=== PATIENT | female | born 1965 | race Two or more races ===

== ENCOUNTER → 2025-05-12 12:40 | Outpatient (REF) | payer OTHER, SELFPAY ==
[2025-05-12 14:09] LABS: Color, Urine Yellow (Yellow); Glucose, Dipstick Normal (Normal); Ketone-Dipstick Negative (Negative); Leukocyte Esterase-Dipstick Negative /ul (Negative); Mucous, Urine 0 SEEN /hpf (<or=2+); Nitrite-Dipstick Negative (Negative); Occult Blood-Urine Negative /ul (Negative); Protein-Dipstick Negative (Negative); Specific Gravity, Urine 1.010 (1.002-1.030); Urine Bilirubin Dipstick Negative (Negative)
[2025-05-12 14:24] LABS: Hematocrit 41.6 % (37-47); Hemoglobin 13.2 g/dL (12.0-15.0); Immature Granulocytes Count 0.020 X10^3/uL (0.0-0.0); Mean Corp Hgb Conc 31.7 g/dL (32-36); Mean Corpuscular Volume 90.4 fL (81-99); Mean Platelet Vol. 10.7 fl (6.2-12.0); NRBC Flagged by Analyzer 0 % (0-5); Platelet Count 336 K/mm3 (150-450); RBC Distribution Width CV 12.6 % (11.6-14.6); RBC Distribution Width SD 41.2 fl (35.1-43.9); Red Blood Count 4.60 M/mm3 (4.2-5.4); White Blood Count 4.8 K/mm3 (4.4-11.0)
[2025-05-12 14:31] LABS: Red Blood Cells-Urine 0-5 SEEN /hpf (0-5); Squamous Epithelial Cells - UA 0-5 SEEN /hpf (5-10)
[2025-05-12 14:55] LABS: Fibrinogen 372 mg/dl (203-444)
[2025-05-12 15:10] LABS: AST(SGOT) 19 U/L (<=31); Alanine Aminotransfer ALT/SGPT 14 U/L (<=34); Albumin, Serum 4.4 g/dL (3.4-4.8); Alkaline Phosphatase 72 U/L (35-104); Anion Gap 11 (5-15); BUN 12 mg/dL (4-19); BUN/Creat Ratio 19.8 RATIO (10-20); Calcium,Total 9.6 mg/dL (7.6-11.0); Carbon Dioxide 26.9 mmol/L (21.0-32.0); Chloride 103 mmol/L (98-108); Globulin 2.8 g/dL (2.2-4.2); Glucose 87 mg/dL (70-99); Potassium 4.0 mmol/L (3.3-5.1)
[2025-05-12 15:33] LABS: CRP 4.54 mg/L (0.0-3.0); Iron 110 ug/dL (50-170)
[2025-05-12 15:39] LABS: Ferritin 144 ng/mL (22-378); Free T3 3.2 pg/mL (2.18-3.98)
[2025-05-20 06:08] LABS: Arsenic 7245 1 ug/L (0-9); CRP, High Sensitivity 3.95 mg/L (0.00-3.00); HOMOCYSTEINE 9.8 umol/L (0.0-14.5); Lead, Blood < 1.0 ug/dL (0.0-3.4); Mercury, Blood 85324 < 1.0 ug/L (0.0-14.9); PROGESTERONE <0.1 ng/mL (.)
== END ==
LOC: LABSPEC 12:40
PROVIDERS: PCP Nurse Practitioner Family; Referring Provider Nurse Practitioner Family; Visit Provider Nurse Practitioner Family
DX: R63.4 Abnormal weight loss (principal); R53.82 Chronic fatigue, unspecified; G47.00 Insomnia, unspecified; R53.1 Weakness; R63.8 Other symptoms and signs concerning food and fluid intake; R50.9 Fever, unspecified; R43.9 Unspecified disturbances of smell and taste; R06.02 Shortness of breath; R07.9 Chest pain, unspecified; R07.89 Other chest pain; R10.84 Generalized abdominal pain; R11.0 Nausea; M62.838 Other muscle spasm; G25.0 Essential tremor; G31.84 Mild cognitive impairment of uncertain or unknown etiology; F32.A Depression, unspecified; F41.9 Anxiety disorder, unspecified; N95.8 Other specified menopausal and perimenopausal disorders
CPT/HCPCS: 80053; 81001; 82627; 82670; 82728; 83036; 83090; 83525; 83540; 83695; 84144; 84403; 84439; 84443; 84481; 85025; 85384; 85652; 86140; 86141; 87086; 87088; 82626

== ENCOUNTER → 2025-08-24 | Outpatient (CLI) | payer OTHER, SELFPAY ==
--- OUTSIDE RECORDS SUMMARY | 2025-08-24 18:04 | XMS RPT_ITS | CCD ---
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 L400.0001, L101.9900, L100.0100, L300.4700, L501.9985, L500.4050, L501.6710 #### [facility] [address] [place], [place], [id number] CRP, High Sensitivity 728325 on 05-20-2025 CRP, HIGH SENS 3.95 mg/L High 0.00-3.00 [facility] Comment on above: Order Comment: Test( s) 568423-Gvwu, Blood; 045206-Uvojlbw, Blood; 370720-Tcmnvdw, Blood; 964475-Rqvogth, Bloodwas developed and its performance characteristicsdetermined by [facility]. It has not been cleared or approvedby the Food and Drug Administration. Result Comment: Rela tive Risk for Future Cardiovascular Event Low <1.00 Average 1.00 - 3.00 High >3.00 Performed By: #### L 503.6150, L501.92866, L501.9520, L503.6550, L506.0400, L509.3001, L3300.1750, M100.2200, L3300.1500, L3300.3500, L3400.4600, L3410.9998, L801.2600, L803.0600, L3100.6427, L3100.7870, L3410.9992, L3410.9996, L400.0001, L101.9900, L100.0100, L300.4700, L501.9985, L500.4050, L501.6710 #### [facility] [address] [place], [place], [id number] L803.0600on 05-20-2025 HOMOCYSTEINE 9.8 umol/L Normal 0.0-14.5 [facility] Comment on above: Order Comment: Test( s) 033142-Bcdj, Blood; 976884-Jvsdibu, Blood; 994383-Bkgxzwz, Blood; 543381-Bkgivhe, Bloodwas developed and its performance characteristicsdetermined by [employer]. It has not been cleared or approvedby the Food and Drug Administration. Performed By: #### L 503.6150, L501.99529, L501.9520, L503.6550, L506.0400, L509.3001, L3300.1750, M100.2200, L3300.1500, L3300.3500, L3400.4600, L3410.9998, L801.2600, L803.0600, L3100.6427, L3100.7870, L3410.9992, L3410.9996, L400.0001, L101.9900, L100.0100, L300.4700, L501.9985, L500.4050, L501.6710 #### [facility] [address] [place], [address] PROGESTERONE 4317on 05-20-20 PROGESTERONE <0.1 Normal . [facility] Comment on above: Order Comment: Test( s) 864437-Pcta, Blood; 046317-Keloswt, Blood; 582890-Uxyrkku, Blood; 450898-Atbjhan, Bloodwas developed and its performance characteristicsdetermined by [employer]. It has not been cleared or approvedby the Food and Drug Administration.N Result Comment: Foll icular phase 0.1 - 0.9 Luteal phase 1.8 - 23.9 Ovulation phase 0.1 - 12.0 First trimester 11.0 - 44.3 Second trimester 25.4 - 83.3 Third trimester 58.7 - 214.0 Postmenopausal 0.0 - 0.1 Performed at: [address] [id number] [employer] Telephone Clerk: Tamara Barrios MD, Phone: [phone] Performed at: [address] [id number] [employer] Telephone Clerk: Joe Aguilar PhD, Phone: [phone] Performed By: #### L 503.6150, L501.17615, L501.9520, L503.6550, L506.0400, L509.3001, L3300.1750, M100.2200, L3300.1500, L3300.3500, L3400.4600, L3410.9998, L801.2600, L803.0600, L3100.6427, L3100.7870, L3410.9992, L3410.9996, L400.0001, L101.9900, L100.0100, L300.4700, L501.9985, L500.4050, L501.6710 #### [facility] [address] [facility] [place], [address] Heavy Metals Bld Profileo n 05-20-2025 ARSENIC,BLOOD 1 ug/L Normal 0-9 [facility] Comment on above: Order Comment: Test( s) 991777-Eatb, Blood; 015804-Yqwcbip, Blood; 767325-Yktlude, Blood; 188554-Nbccdba, Bloodwas developed and its performance characteristicsdetermined by [facility]. It has not been cleared or approvedby the Food and Drug Administration. Result Comment: Dete ction Limit = 1 Performed By: #### L 503.6150, L501.30452, L501.9520, L503.6550, L506.0400, L509.3001, L3300.1750, M100.2200, L3300.1500, L3300.3500, L3400.4600, L3410.9998, L801.2600, L803.0600, L3100.6427, L3100.7870, L3410.9992, L3410.9996, L400.0001, L101.9900, L100.0100, L300.4700, L501.9985, L500.4050, L501.6710 #### [facility] [address] [place], [address] CADMIUM BLOOD < 0.5 Normal 0.0-1.2 [facility] Comment on above: Order Comment: Test( s) 596090-Mwto, Blood; 210930-Vwuinod, Blood; 897089-Itchtrs, Blood; 851771-Dnksaes, Bloodwas developed and its performance characteristicsdetermined by [facility]. It has not been cleared or approvedby the Food and Drug Administration. Result Comment: Envi ronmental Exposure: Nonsmokers 0.3 - 1.2 Smokers 0.6 - 3.9 Occupational Exposure: OSHA Cadmium Std 5.0 GOVIND 5.0 Detection Limit = 0.5 Performed By: #### L 503.6150, L501.63427, L501.9520, L503.6550, L506.0400, L509.3001, L3300.1750, M100.2200, L3300.1500, L3300.3500, L3400.4600, L3410.9998, L801.2600, L803.0600, L3100.6427, L3100.7870, L3410.9992, L3410.9996, L400.0001, L101.9900, L100.0100, L300.4700, L501.9985, L500.4050, L501.6710 #### [facility] [address] [place], [address] LEAD, BLOOD < 1.0 Normal 0.0-3.4 [facility] Comment on above: Order Comment: Test( s) 294001-Nkjw, Blood; 886724-Ojfgsqi, Blood; 827444-Modxuyl, Blood; 740659-Jyyxale, Bloodwas developed and its performance characteristicsdetermined by [facility]. It has not been cleared or approvedby the Food and Drug Administration. Result Comment: Test ing performed by Inductively coupled plasma/Mass Spectrometry. Environmental Exposure: WHO Recommendation <5.0 Occupational Exposure: OSHA Lead Std 40.0 GOVIND 30.0 Detection Limit = 1.0 Performed By: #### L 503.6150, L501.46035, L501.9520, L503.6550, L506.0400, L509.3001, L3300.1750, M100.2200, L3300.1500, L3300.3500, L3400.4600, L3410.9998, L801.2600, L803.0600, L3100.6427, L3100.7870, L3410.9992, L3410.9996, L400.0001, L101.9900, L100.0100, L300.4700, L501.9985, L500.4050, L501.6710 #### [facility] [address] [facility]. [place], [place], [id number] MERCURY,BLOOD < 1.0 Normal 0.0-14.9 [facility] Comment on above: Order Comment: Test( s) 391943-Salh, Blood; 813611-Lesvips, Blood; 581531-Khrguzb, Blood; 185810-Tnysfyj, Bloodwas developed and its performance characteristicsdetermined by [facility]. It has not been cleared or approvedby the Food and Drug Administration. Result Comment: Dete ction Limit = 1.0 Performed By: #### L 503.6150, L501.24884, L501.9520, L503.6550, L506.0400, L509.3001, L3300.1750, M100.2200, L3300.1500, L3300.3500, L3400.4600, L3410.9998, L801.2600, L803.0600, L3100.6427, L3100.7870, L3410.9992, L3410.9996, L400.0001, L101.9900, L100.0100, L300.4700, L501.9985, L500.4050, L501.6710 #### [facility] [address] [facility] [place], [address] DHEA Sulfateon 05-14-2025 DHEA SULFATE 89.5 ug/dL Normal 29.4-220.5 [facility] Comment on above: Order Comment: Test( s) 937452-Rvhjqkbvrge (a)was developed and its performance characteristicsdetermined by [facility]. It has not been cleared or approvedby the Food and Drug Administration.N Performed By: #### L 503.6150, L501.39709, L501.9520, L503.6550, L506.0400, L509.3001, L3300.1750, M100.2200, L3300.1500, L3300.3500, L3400.4600, L3410.9998, L801.2600, L803.0600, L3100.6427, L3100.7870, L3410.9992, L3410.9996, L400.0001, L101.9900, L100.0100, L300.4700, L501.9985, L500.4050, L501.6710 #### [facility] [address] [place] [address]. [place], [address] Insulin Levelon 05-14-2025 INSULIN,FASTING 13.7 uIU/mL Normal 2.6-24.9 [facility] Comment on above: Order Comment: Test( s) 514953-Vgpwdrzvwed (a)was developed and its performance characteristicsdetermined by [facility]. It has not been cleared or approvedby the Food and Drug Administration. Result Comment: Perf ormed at: [facility] [address] [id number] Telegraph [employer] Telephone Clerk: Joe Aguilar PhD, Phone: [phone] Performed By: #### L 503.6150, L501.83706, L501.9520, L503.6550, L506.0400, L509.3001, L3300.1750, M100.2200, L3300.1500, L3300.3500, L3400.4600, L3410.9998, L801.2600, L803.0600, L3100.6427, L3100.7870, L3410.9992, L3410.9996, L400.0001, L101.9900, L100.0100, L300.4700, L501.9985, L500.4050, L501.6710 #### [facility] [address] [facility] [place], [address] [facility] Misc.on 05-14-2025 [facility] Misc. 4 COMMENT Normal . [facility] Comment on above: Order Comment: 22904 6HNK1 ACD RMT WB Result Comment: Test Ordered: [id number] HNK1 (CD57) Panel Test(s) 579982-% CD8-/CD57+ Lymphs was developed and its performance characteristics determined by [facility]. It has not been cleared or approved by the Food and Drug Administration. % CD8-/CD57+ Lymphs 6.1 % BN Reference Range: 2.0-17.0 Abs.CD8-CD57+ Lymphs 55 [L ] /uL CB Reference Range: 60-360 WBC 4.6 x10E3/uL CB Reference Range: 3.4-10.8 RBC 4.78 x10E6/uL CB Reference Range: 3.77-5.28 Hemoglobin 13.7 g/dL CB Reference Range: 11.1-15.9 Hematocrit 45.1 % CB Reference Range: 34.0-46.6 MCV 94 fL CB Reference Range: 79-97 MCH 28.7 pg CB Reference Range: 26.6-33.0 MCHC 30.4 [L ] g/dL CB Reference Range: 31.5-35.7 RDW 12.1 % CB Reference Range: 11.7-15.4 Platelets 350 x10E3/uL CB Reference Range: 150-450 Neutrophils 71 % CB Reference Range: Not Estab. Lymphs 20 % CB Reference Range: Not Estab. Monocytes 6 % CB Reference Range: Not Estab. Eos 2 % CB Reference Range: Not Estab. Basos 1 % CB Reference Range: Not Estab. Immature Cells [employer]OR [employer]PERATOR [employer] Reference Range: . Neutrophils (Absolute) 3.2 x10E3/uL CB Reference Range: 1.4-7.0 Lymphs (Absolute) 0.9 x10E3/uL CB Reference Range: 0.7-3.1 Monocytes(Absolute) 0.3 x10E3/uL CB Reference Range: 0.1-0.9 Eos (Absolute) 0.1 x10E3/uL CB Reference Range: 0.0-0.4 Baso (Absolute) 0.1 x10E3/uL CB Reference Range: 0.0-0.2 Immature Granulocytes 0 % CB Reference Range: Not Estab. Immature Grans (Abs) 0.0 x10E3/uL CB Reference Range: 0.0-0.1 NRBC [employer]ANCE [employer]OR [employer]PER[employer] Reference Range: . 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 Performed at: - [address] [id number] [employer] Telephone Clerk: Tamara Barrios MD, Phone: [phone] Performed at: - [address] [id number] [employer] Telephone Clerk: Joe Aguilar PhD, Phone: [phone] Performed By: #### L 503.6150, L501.90359, L501.9520, L503.6550, L506.0400, L509.3001, L3300.1750, M100.2200, L3300.1500, L3300.3500, L3400.4600, L3410.9998, L801.2600, L803.0600, L3100.6427, L3100.7870, L3410.9992, L3410.9996, L400.0001, L101.9900, L100.0100, L300.4700, L501.9985, L500.4050, L501.6710 #### [facility] [address] [place], [address] Lipoprotein Aon 05-14-2025 Lipoprotein a [Moles/Vol] 247.5 nmol/L Abnormal <75.0 [facility] Comment on above: Order Comment: Test( s) 969405-Ltlygyxenqy (a)was developed and its performance characteristicsdetermined by [facility]. It has not been cleared or approvedby the Food and Drug Administration. Result Comment: Resu lts confirmed on dilution. Note: Values greater than or equal to 75.0 nmol/L may indicate an independent risk factor for CHD, but must be evaluated with caution when applied to non- populations due to the influence of genetic factors on Lp(a) across ethnicities. Performed By: #### L 503.6150, L501.99395, L501.9520, L503.6550, L506.0400, L509.3001, L3300.1750, M100.2200, L3300.1500, L3300.3500, L3400.4600, L3410.9998, L801.2600, L803.0600, L3100.6427, L3100.7870, L3410.9992, L3410.9996, L400.0001, L101.9900, L100.0100, L300.4700, L501.9985, L500.4050, L501.6710 #### [facility] [address] [place], [place], [id number] Urine Cultureon 05-14-2025 [facility] Mixed Gram Positive Organisms Wirt Count 80,000-100,000 MIXC Mixed contaminants. Submit a new specimen if indicated. Normal [facility] Comment on above: Performed By: #### L 503.6150, L501.95292, L501.9520, L503.6550, L506.0400, L509.3001, L3300.1750, M100.2200, L3300.1500, L3300.3500, L3400.4600, L3410.9998, L801.2600, L803.0600, L3100.6427, L3100.7870, L3410.9992, L3410.9996, L400.0001, L101.9900, L100.0100, L300.4700, L501.9985, L500.4050, L501.6710 #### [facility] [address] [place], [place], [id number] CBC W/Diff, Automatedon 04-24 Absolute Lymph 0.96 X10 3/uL Normal 0.83-4.51 [facility] Comment on above: Performed By: #### L 503.6150, L501.15486, L501.9520, L503.6550, L506.0400, L509.3001, L3300.1750, M100.2200, L3300.1500, L3300.3500, L3400.4600, L3410.9998, L801.2600, L803.0600, L3100.6427, L3100.7870, L3410.9992, L3410.9996, L400.0001, L101.9900, L100.0100, L300.4700, L501.9985, L500.4050, L501.6710 #### [facility] [address] [facility]. [place], [place], [phone] (795) Absolute Neut 3.4 X10 3/uL Normal 2.0-7.7 [facility] Comment on above: Performed By: #### L 503.6150, L501.08164, L501.9520, L503.6550, L506.0400, L509.3001, L3300.1750, M100.2200, L3300.1500, L3300.3500, L3400.4600, L3410.9998, L801.2600, L803.0600, L3100.6427, L3100.7870, L3410.9992, L3410.9996, L400.0001, L101.9900, L100.0100, L300.4700, L501.9985, L500.4050, L501.6710 #### [facility] [address] [facility] [place], [place], [id number] Basophils/100 WBC (Bld) 1.5 % High 0-1 [facility] Comment on above: Performed By: #### L 503.6150, L501.56495, L501.9520, L503.6550, L506.0400, L509.3001, L3300.1750, M100.2200, L3300.1500, L3300.3500, L3400.4600, L3410.9998, L801.2600, L803.0600, L3100.6427, L3100.7870, L3410.9992, L3410.9996, L400.0001, L101.9900, L100.0100, L300.4700, L501.9985, L500.4050, L501.6710 #### [facility] [address] [facility] [place], [place], [phone] (175) Eosinophils/100 WBC (Bld) 1.9 % Normal 0-5 [facility] Comment on above: Performed By: #### L 503.6150, L501.80651, L501.9520, L503.6550, L506.0400, L509.3001, L3300.1750, M100.2200, L3300.1500, L3300.3500, L3400.4600, L3410.9998, L801.2600, L803.0600, L3100.6427, L3100.7870, L3410.9992, L3410.9996, L400.0001, L101.9900, L100.0100, L300.4700, L501.9985, L500.4050, L501.6710 #### [facility] [address] [facility] [place], [address] (002) Erythrocyte distribution width (RBC) [Ratio] 12.6 % Normal 11.6-14.6 [facility] Comment on above: Performed By: #### L 503.6150, L501.69974, L501.9520, L503.6550, L506.0400, L509.3001, L3300.1750, M100.2200, L3300.1500, L3300.3500, L3400.4600, L3410.9998, L801.2600, L803.0600, L3100.6427, L3100.7870, L3410.9992, L3410.9996, L400.0001, L101.9900, L100.0100, L300.4700, L501.9985, L500.4050, L501.6710 #### [facility] [address] [facility] [place], [address] (969) Hematocrit (Bld) [Volume fraction] 41.6 % Normal 37-47 [facility] Comment on above: Performed By: #### L 503.6150, L501.17511, L501.9520, L503.6550, L506.0400, L509.3001, L3300.1750, M100.2200, L3300.1500, L3300.3500, L3400.4600, L3410.9998, L801.2600, L803.0600, L3100.6427, L3100.7870, L3410.9992, L3410.9996, L400.0001, L101.9900, L100.0100, L300.4700, L501.9985, L500.4050, L501.6710 #### [facility] [address] [facility] [place], [address] Hemoglobin (Bld) [Mass/Vol] 13.2 g/dL Normal 12.0-15.0 [facility] Comment on above: Performed By: #### L 503.6150, L501.92897, L501.9520, L503.6550, L506.0400, L509.3001, L3300.1750, M100.2200, L3300.1500, L3300.3500, L3400.4600, L3410.9998, L801.2600, L803.0600, L3100.6427, L3100.7870, L3410.9992, L3410.9996, L400.0001, L101.9900, L100.0100, L300.4700, L501.9985, L500.4050, L501.6710 #### [facility] [address] [facility] [place], [address] IG% 0.400 Normal 0.0-0.9 [facility] Comment on above: Result Comment: IG% - Immature Granulocytes (promyelocytes, myelocytes and metamyelocytes) > 1% indicates that a LEFT SHIFT is Present. Performed By: #### L 503.6150, L501.70003, L501.9520, L503.6550, L506.0400, L509.3001, L3300.1750, M100.2200, L3300.1500, L3300.3500, L3400.4600, L3410.9998, L801.2600, L803.0600, L3100.6427, L3100.7870, L3410.9992, L3410.9996, L400.0001, L101.9900, L100.0100, L300.4700, L501.9985, L500.4050, L501.6710 #### [facility] [address] [facility] [place], [place], [phone] (599) Lymphocytes/100 WBC (Bld) 20.1 % Normal 19-41 [facility] Comment on above: Performed By: #### L 503.6150, L501.81357, L501.9520, L503.6550, L506.0400, L509.3001, L3300.1750, M100.2200, L3300.1500, L3300.3500, L3400.4600, L3410.9998, L801.2600, L803.0600, L3100.6427, L3100.7870, L3410.9992, L3410.9996, L400.0001, L101.9900, L100.0100, L300.4700, L501.9985, L500.4050, L501.6710 #### [facility] [address] [facility] [place], [place], [phone] MCH (RBC) [Entitic mass] 28.7 pg Normal 27.0-32.0 [facility] Comment on above: Performed By: #### L 503.6150, L501.97514, L501.9520, L503.6550, L506.0400, L509.3001, L3300.1750, M100.2200, L3300.1500, L3300.3500, L3400.4600, L3410.9998, L801.2600, L803.0600, L3100.6427, L3100.7870, L3410.9992, L3410.9996, L400.0001, L101.9900, L100.0100, L300.4700, L501.9985, L500.4050, L501.6710 #### [facility] [address] [place], [place], [phone] MCHC (RBC) [Mass/Vol] 31.7 g/dL Low 32-36 [facility] Comment on above: Performed By: #### L 503.6150, L501.65275, L501.9520, L503.6550, L506.0400, L509.3001, L3300.1750, M100.2200, L3300.1500, L3300.3500, L3400.4600, L3410.9998, L801.2600, L803.0600, L3100.6427, L3100.7870, L3410.9992, L3410.9996, L400.0001, L101.9900, L100.0100, L300.4700, L501.9985, L500.4050, L501.6710 #### [facility] [address] [facility] [place], [place], [id number] MCV (RBC) [Entitic vol] 90.4 fL Normal 81-99 [facility] Comment on above: Performed By: #### L 503.6150, L501.84674, L501.9520, L503.6550, L506.0400, L509.3001, L3300.1750, M100.2200, L3300.1500, L3300.3500, L3400.4600, L3410.9998, L801.2600, L803.0600, L3100.6427, L3100.7870, L3410.9992, L3410.9996, L400.0001, L101.9900, L100.0100, L300.4700, L501.9985, L500.4050, L501.6710 #### [facility] [address] [facility] [place], [address] Monocytes/100 WBC (Bld) 5.9 % Normal 0-10 [facility] Comment on above: Performed By: #### L 503.6150, L501.63036, L501.9520, L503.6550, L506.0400, L509.3001, L3300.1750, M100.2200, L3300.1500, L3300.3500, L3400.4600, L3410.9998, L801.2600, L803.0600, L3100.6427, L3100.7870, L3410.9992, L3410.9996, L400.0001, L101.9900, L100.0100, L300.4700, L501.9985, L500.4050, L501.6710 #### [facility] [address] [place], [address] Neutrophils/100 WBC (Bld) 70.2 % High 47-70 [facility] Comment on above: Performed By: #### L 503.6150, L501.46541, L501.9520, L503.6550, L506.0400, L509.3001, L3300.1750, M100.2200, L3300.1500, L3300.3500, L3400.4600, L3410.9998, L801.2600, L803.0600, L3100.6427, L3100.7870, L3410.9992, L3410.9996, L400.0001, L101.9900, L100.0100, L300.4700, L501.9985, L500.4050, L501.6710 #### [facility] [address] [facility] [place], [address] Nucleated RBC (Bld) [#/Vol] 0 10*3/uL Normal 0-5 [facility] Comment on above: Performed By: #### L 503.6150, L501.80778, L501.9520, L503.6550, L506.0400, L509.3001, L3300.1750, M100.2200, L3300.1500, L3300.3500, L3400.4600, L3410.9998, L801.2600, L803.0600, L3100.6427, L3100.7870, L3410.9992, L3410.9996, L400.0001, L101.9900, L100.0100, L300.4700, L501.9985, L500.4050, L501.6710 #### [facility] [address] [facility] [place], [place], [phone] (226) Platelet mean volume (Bld) [Entitic vol] 10.7 fL Normal 6.2-12.0 [facility] Comment on above: Performed By: #### L 503.6150, L501.56938, L501.9520, L503.6550, L506.0400, L509.3001, L3300.1750, M100.2200, L3300.1500, L3300.3500, L3400.4600, L3410.9998, L801.2600, L803.0600, L3100.6427, L3100.7870, L3410.9992, L3410.9996, L400.0001, L101.9900, L100.0100, L300.4700, L501.9985, L500.4050, L501.6710 #### [facility] [address] [place], [id number] Platelets (Bld) [#/Vol] 336 10*3/uL Normal 150-450 [facility] Comment on above: Performed By: #### L 503.6150, L501.11493, L501.9520, L503.6550, L506.0400, L509.3001, L3300.1750, M100.2200, L3300.1500, L3300.3500, L3400.4600, L3410.9998, L801.2600, L803.0600, L3100.6427, L3100.7870, L3410.9992, L3410.9996, L400.0001, L101.9900, L100.0100, L300.4700, L501.9985, L500.4050, L501.6710 #### [facility] [address]. [place], [place], [id number] [phone] RBC (Bld) [#/Vol] 4.60 10*6/uL Normal 4.2-5.4 [facility] Comment on above: Performed By: #### L 503.6150, L501.22886, L501.9520, L503.6550, L506.0400, L509.3001, L3300.1750, M100.2200, L3300.1500, L3300.3500, L3400.4600, L3410.9998, L801.2600, L803.0600, L3100.6427, L3100.7870, L3410.9992, L3410.9996, L400.0001, L101.9900, L100.0100, L300.4700, L501.9985, L500.4050, L501.6710 #### [facility] [address]. [place], [place], [id number] (451) RDW SD 41.2 fl Normal 35.1-43.9 [facility] Comment on above: Performed By: #### L 503.6150, L501.52855, L501.9520, L503.6550, L506.0400, L509.3001, L3300.1750, M100.2200, L3300.1500, L3300.3500, L3400.4600, L3410.9998, L801.2600, L803.0600, L3100.6427, L3100.7870, L3410.9992, L3410.9996, L400.0001, L101.9900, L100.0100, L300.4700, L501.9985, L500.4050, L501.6710 #### [facility] [address] [place], [place], [id number] WBC (Bld) [#/Vol] 4.8 10*3/uL Normal 4.4-11.0 [facility] Comment on above: Performed By: #### L 503.6150, L501.74795, L501.9520, L503.6550, L506.0400, L509.3001, L3300.1750, M100.2200, L3300.1500, L3300.3500, L3400.4600, L3410.9998, L801.2600, L803.0600, L3100.6427, L3100.7870, L3410.9992, L3410.9996, L400.0001, L101.9900, L100.0100, L300.4700, L501.9985, L500.4050, L501.6710 #### [facility] [address]. [place], [place], [id number] CRPon 05-12-2025 C-REACTIVE PROT 4.54 mg/L High 0.0-3.0 [facility] Comment on above: Performed By: #### L 503.6150, L501.89122, L501.9520, L503.6550, L506.0400, L509.3001, L3300.1750, M100.2200, L3300.1500, L3300.3500, L3400.4600, L3410.9998, L801.2600, L803.0600, L3100.6427, L3100.7870, L3410.9992, L3410.9996, L400.0001, L101.9900, L100.0100, L300.4700, L501.9985, L500.4050, L501.6710 #### [facility] [address] [place], [place], [id number] Comprehensive Metabolic Prof wion 05-12-2025 Albumin [Mass/Vol] 4.4 g/dL Normal 3.4-4.8 [facility] Comment on above: Performed By: #### L 503.6150, L501.26750, L501.9520, L503.6550, L506.0400, L509.3001, L3300.1750, M100.2200, L3300.1500, L3300.3500, L3400.4600, L3410.9998, L801.2600, L803.0600, L3100.6427, L3100.7870, L3410.9992, L3410.9996, L400.0001, L101.9900, L100.0100, L300.4700, L501.9985, L500.4050, L501.6710 #### [facility] [address] [facility] [place], [place], [id number] Albumin/Globulin [Mass ratio] 1.6 {ratio} Normal 0.9-2.4 [facility] Comment on above: Performed By: #### L 503.6150, L501.74646, L501.9520, L503.6550, L506.0400, L509.3001, L3300.1750, M100.2200, L3300.1500, L3300.3500, L3400.4600, L3410.9998, L801.2600, L803.0600, L3100.6427, L3100.7870, L3410.9992, L3410.9996, L400.0001, L101.9900, L100.0100, L300.4700, L501.9985, L500.4050, L501.6710 #### [facility] [address] [place], [place], [id number] ALK PHOS 72 U/L Normal 35-104 [facility] Comment on above: Performed By: #### L 503.6150, L501.40516, L501.9520, L503.6550, L506.0400, L509.3001, L3300.1750, M100.2200, L3300.1500, L3300.3500, L3400.4600, L3410.9998, L801.2600, L803.0600, L3100.6427, L3100.7870, L3410.9992, L3410.9996, L400.0001, L101.9900, L100.0100, L300.4700, L501.9985, L500.4050, L501.6710 #### [facility] [address] [facility] [place], [address] ALT [Catalytic activity/Vol] 14 U/L Normal <=34 [facility] Comment on above: Performed By: #### L 503.6150, L501.04593, L501.9520, L503.6550, L506.0400, L509.3001, L3300.1750, M100.2200, L3300.1500, L3300.3500, L3400.4600, L3410.9998, L801.2600, L803.0600, L3100.6427, L3100.7870, L3410.9992, L3410.9996, L400.0001, L101.9900, L100.0100, L300.4700, L501.9985, L500.4050, L501.6710 #### [facility] [address] [facility] [place], [address] AST [Catalytic activity/Vol] 19 U/L Normal <=31 [facility] Comment on above: Performed By: #### L 503.6150, L501.10592, L501.9520, L503.6550, L506.0400, L509.3001, L3300.1750, M100.2200, L3300.1500, L3300.3500, L3400.4600, L3410.9998, L801.2600, L803.0600, L3100.6427, L3100.7870, L3410.9992, L3410.9996, L400.0001, L101.9900, L100.0100, L300.4700, L501.9985, L500.4050, L501.6710 #### [facility] [address] [facility] [place], [place], [phone] (716) Bilirubin [Mass/Vol] 0.74 mg/dL Normal 0.00-1.30 [facility] Comment on above: Performed By: #### L 503.6150, L501.03238, L501.9520, L503.6550, L506.0400, L509.3001, L3300.1750, M100.2200, L3300.1500, L3300.3500, L3400.4600, L3410.9998, L801.2600, L803.0600, L3100.6427, L3100.7870, L3410.9992, L3410.9996, L400.0001, L101.9900, L100.0100, L300.4700, L501.9985, L500.4050, L501.6710 #### [facility] [address] [place], [place], [id number] BUN/CRE 19.8 RATIO Normal 10-20 [facility] Comment on above: Performed By: #### L 503.6150, L501.53323, L501.9520, L503.6550, L506.0400, L509.3001, L3300.1750, M100.2200, L3300.1500, L3300.3500, L3400.4600, L3410.9998, L801.2600, L803.0600, L3100.6427, L3100.7870, L3410.9992, L3410.9996, L400.0001, L101.9900, L100.0100, L300.4700, L501.9985, L500.4050, L501.6710 #### [facility] [address] [place], [place], [phone] (151) Calcium [Mass/Vol] 9.6 mg/dL Normal 7.6-11.0 [facility] Comment on above: Performed By: #### L 503.6150, L501.69203, L501.9520, L503.6550, L506.0400, L509.3001, L3300.1750, M100.2200, L3300.1500, L3300.3500, L3400.4600, L3410.9998, L801.2600, L803.0600, L3100.6427, L3100.7870, L3410.9992, L3410.9996, L400.0001, L101.9900, L100.0100, L300.4700, L501.9985, L500.4050, L501.6710 #### [facility] [address] [place], [place], [phone] (960) Chloride [Moles/Vol] 103 mmol/L Normal 98-108 [facility] Comment on above: Performed By: #### L 503.6150, L501.28311, L501.9520, L503.6550, L506.0400, L509.3001, L3300.1750, M100.2200, L3300.1500, L3300.3500, L3400.4600, L3410.9998, L801.2600, L803.0600, L3100.6427, L3100.7870, L3410.9992, L3410.9996, L400.0001, L101.9900, L100.0100, L300.4700, L501.9985, L500.4050, L501.6710 #### [facility] [address] [place], [place], [phone] (157) CO2 [Moles/Vol] 26.9 mmol/L Normal 21.0-32.0 [facility] Comment on above: Performed By: #### L 503.6150, L501.67926, L501.9520, L503.6550, L506.0400, L509.3001, L3300.1750, M100.2200, L3300.1500, L3300.3500, L3400.4600, L3410.9998, L801.2600, L803.0600, L3100.6427, L3100.7870, L3410.9992, L3410.9996, L400.0001, L101.9900, L100.0100, L300.4700, L501.9985, L500.4050, L501.6710 #### [facility] [address] [facility] [place], [address] Creatinine [Mass/Vol] 0.60 mg/dL Low 0.70-1.20 [facility] Comment on above: Performed By: #### L 503.6150, L501.42327, L501.9520, L503.6550, L506.0400, L509.3001, L3300.1750, M100.2200, L3300.1500, L3300.3500, L3400.4600, L3410.9998, L801.2600, L803.0600, L3100.6427, L3100.7870, L3410.9992, L3410.9996, L400.0001, L101.9900, L100.0100, L300.4700, L501.9985, L500.4050, L501.6710 #### [facility] [address] [facility] [place], [address] GAP 11 Normal 5-15 [facility] Comment on above: Performed By: #### L 503.6150, L501.84744, L501.9520, L503.6550, L506.0400, L509.3001, L3300.1750, M100.2200, L3300.1500, L3300.3500, L3400.4600, L3410.9998, L801.2600, L803.0600, L3100.6427, L3100.7870, L3410.9992, L3410.9996, L400.0001, L101.9900, L100.0100, L300.4700, L501.9985, L500.4050, L501.6710 #### [facility] [address] [facility] [place], [place], [id number] GFR/1.73 sq M.predicted among non-blacks MDRD (S/P/Bld) [Vol rate/Area] 103 mL/min/{1.73_m2} Normal >60 [facility] Comment on above: Result Comment: mL/m in/1.73m2 CKD-EPI Creatinine Equation (2020) Performed By: #### L 503.6150, L501.99954, L501.9520, L503.6550, L506.0400, L509.3001, L3300.1750, M100.2200, L3300.1500, L3300.3500, L3400.4600, L3410.9998, L801.2600, L803.0600, L3100.6427, L3100.7870, L3410.9992, L3410.9996, L400.0001, L101.9900, L100.0100, L300.4700, L501.9985, L500.4050, L501.6710 #### [facility] [address] [facility] [place], [address] Globulin (S) [Mass/Vol] 2.8 g/dL Normal 2.2-4.2 [facility] Comment on above: Performed By: #### L 503.6150, L501.16175, L501.9520, L503.6550, L506.0400, L509.3001, L3300.1750, M100.2200, L3300.1500, L3300.3500, L3400.4600, L3410.9998, L801.2600, L803.0600, L3100.6427, L3100.7870, L3410.9992, L3410.9996, L400.0001, L101.9900, L100.0100, L300.4700, L501.9985, L500.4050, L501.6710 #### [facility] [address] [facility] [place], [place], [phone] (911) Glucose [Mass/Vol] 87 mg/dL Normal 70-99 [facility] Comment on above: Performed By: #### L 503.6150, L501.24069, L501.9520, L503.6550, L506.0400, L509.3001, L3300.1750, M100.2200, L3300.1500, L3300.3500, L3400.4600, L3410.9998, L801.2600, L803.0600, L3100.6427, L3100.7870, L3410.9992, L3410.9996, L400.0001, L101.9900, L100.0100, L300.4700, L501.9985, L500.4050, L501.6710 #### [facility] [address] [facility] [place], [place], [phone] Potassium [Moles/Vol] 4.0 mmol/L Normal 3.3-5.1 [facility] Comment on above: Performed By: #### L 503.6150, L501.36709, L501.9520, L503.6550, L506.0400, L509.3001, L3300.1750, M100.2200, L3300.1500, L3300.3500, L3400.4600, L3410.9998, L801.2600, L803.0600, L3100.6427, L3100.7870, L3410.9992, L3410.9996, L400.0001, L101.9900, L100.0100, L300.4700, L501.9985, L500.4050, L501.6710 #### [facility] [address] [place], [place], [phone] (546) Sodium [Moles/Vol] 142 mmol/L Normal 133-145 [facility] Comment on above: Performed By: #### L 503.6150, L501.34158, L501.9520, L503.6550, L506.0400, L509.3001, L3300.1750, M100.2200, L3300.1500, L3300.3500, L3400.4600, L3410.9998, L801.2600, L803.0600, L3100.6427, L3100.7870, L3410.9992, L3410.9996, L400.0001, L101.9900, L100.0100, L300.4700, L501.9985, L500.4050, L501.6710 #### [facility] [address] [facility] [place], [place], [id number] (908) T PROT 7.1 g/dL Normal 5.9-8.4 [facility] Comment on above: Performed By: #### L 503.6150, L501.93628, L501.9520, L503.6550, L506.0400, L509.3001, L3300.1750, M100.2200, L3300.1500, L3300.3500, L3400.4600, L3410.9998, L801.2600, L803.0600, L3100.6427, L3100.7870, L3410.9992, L3410.9996, L400.0001, L101.9900, L100.0100, L300.4700, L501.9985, L500.4050, L501.6710 #### [facility] [address] [place], [place], [phone] (791) Urea nitrogen [Mass/Vol] 12 mg/dL Normal 4-19 [facility] Comment on above: Performed By: #### L 503.6150, L501.00952, L501.9520, L503.6550, L506.0400, L509.3001, L3300.1750, M100.2200, L3300.1500, L3300.3500, L3400.4600, L3410.9998, L801.2600, L803.0600, L3100.6427, L3100.7870, L3410.9992, L3410.9996, L400.0001, L101.9900, L100.0100, L300.4700, L501.9985, L500.4050, L501.6710 #### [facility] [address] [place], [place], [id number] Erythrocyte Sed Rateon 05-12 SED RATE 7 mm/hr Normal 0-30 [facility] Comment on above: Performed By: #### L 503.6150, L501.24276, L501.9520, L503.6550, L506.0400, L509.3001, L3300.1750, M100.2200, L3300.1500, L3300.3500, L3400.4600, L3410.9998, L801.2600, L803.0600, L3100.6427, L3100.7870, L3410.9992, L3410.9996, L400.0001, L101.9900, L100.0100, L300.4700, L501.9985, L500.4050, L501.6710 #### [facility] [address] [place], [place], [id number] Estradiolon 05-12-2025 ESTRADIOL < 5.0 Normal [facility] Comment on above: Result Comment: FEMA LES ADULT FEMALE: Premenopausal: 15-350 pg/mL(E2 levels vary widely through the menstrual cycle) Postmenopausal: <10 pg/mL CARLITOS STAGES MEAN AGE REFERENCE RANGES Stage I(>14 days and prepubertal) 7.1 years Undetectable-20 pg/mLL Stage II 10.5 years Undetectable-24 pg/mL Stage III 11.6 years Undetectable-60 pg/mL Stage IV 12.3 years 15-85 pg/mL Stage V 14.5 years 15-350 pg/mL Puberty onset (transition from Carlitos stage I to Carlitos stage II) occurs for girls at a median age of 10.5 (/- 2) years. There is evidence that it may occur up to 1 year earlier in obese girls and in girls. Progression through Carlitos stages is variable. Carlitos stage V (adult) should be reached by age 18. Performed By: #### L 503.6150, L501.55763, L501.9520, L503.6550, L506.0400, L509.3001, L3300.1750, M100.2200, L3300.1500, L3300.3500, L3400.4600, L3410.9998, L801.2600, L803.0600, L3100.6427, L3100.7870, L3410.9992, L3410.9996, L400.0001, L101.9900, L100.0100, L300.4700, L501.9985, L500.4050, L501.6710 #### [facility] [address] [place], [address] Ferritinon 05-12-2025 Ferritin [Mass/Vol] 144 ng/mL Normal 22-378 [facility] Comment on above: Performed By: #### L 503.6150, L501.56598, L501.9520, L503.6550, L506.0400, L509.3001, L3300.1750, M100.2200, L3300.1500, L3300.3500, L3400.4600, L3410.9998, L801.2600, L803.0600, L3100.6427, L3100.7870, L3410.9992, L3410.9996, L400.0001, L101.9900, L100.0100, L300.4700, L501.9985, L500.4050, L501.6710 #### [facility] [address] [place], [place], [address] Fibrinogenon 05-12-2025 FIBRINOGEN 372 mg/dl Normal 203-444 [facility] Comment on above: Performed By: #### L 503.6150, L501.76763, L501.9520, L503.6550, L506.0400, L509.3001, L3300.1750, M100.2200, L3300.1500, L3300.3500, L3400.4600, L3410.9998, L801.2600, L803.0600, L3100.6427, L3100.7870, L3410.9992, L3410.9996, L400.0001, L101.9900, L100.0100, L300.4700, L501.9985, L500.4050, L501.6710 #### [facility] [address] [place], [place], [address] Free T3on 05-12-2025 Free T3 [Mass/Vol] 3.2 pg/mL Normal 2.18-3.98 [facility] Comment on above: Order Comment: N Performed By: #### L 503.6150, L501.12942, L501.9520, L503.6550, L506.0400, L509.3001, L3300.1750, M100.2200, L3300.1500, L3300.3500, L3400.4600, L3410.9998, L801.2600, L803.0600, L3100.6427, L3100.7870, L3410.9992, L3410.9996, L400.0001, L101.9900, L100.0100, L300.4700, L501.9985, L500.4050, L501.6710 #### [facility] [address] [place], [place], [id number] Hemoglobin A1con 05-12-2025 HbA1c (Bld) [Mass fraction] 5.5 % Normal <=5.6 [facility] Comment on above: Result Comment: Norm al < 5.7 % Prediabetic 5.7 - 6.4 % Diabetic >or= 6.5 % Please note range changes. Performed By: #### L 503.6150, L501.87700, L501.9520, L503.6550, L506.0400, L509.3001, L3300.1750, M100.2200, L3300.1500, L3300.3500, L3400.4600, L3410.9998, L801.2600, L803.0600, L3100.6427, L3100.7870, L3410.9992, L3410.9996, L400.0001, L101.9900, L100.0100, L300.4700, L501.9985, L500.4050, L501.6710 #### [facility] [address] [facility] [place], [place], [phone] Ironon 05-12-2025 Iron [Mass/Vol] 110 ug/dL Normal 50-170 [facility] Comment on above: Performed By: #### L 503.6150, L501.95310, L501.9520, L503.6550, L506.0400, L509.3001, L3300.1750, M100.2200, L3300.1500, L3300.3500, L3400.4600, L3410.9998, L801.2600, L803.0600, L3100.6427, L3100.7870, L3410.9992, L3410.9996, L400.0001, L101.9900, L100.0100, L300.4700, L501.9985, L500.4050, L501.6710 #### [facility] [address] [facility] [place], [place], [id number] L509.3001on 05-12-2025 Testosterone [Mass/Vol] 8.04 ng/dL Normal 5-32 [facility] Comment on above: Performed By: #### L 503.6150, L501.56759, L501.9520, L503.6550, L506.0400, L509.3001, L3300.1750, M100.2200, L3300.1500, L3300.3500, L3400.4600, L3410.9998, L801.2600, L803.0600, L3100.6427, L3100.7870, L3410.9992, L3410.9996, L400.0001, L101.9900, L100.0100, L300.4700, L501.9985, L500.4050, L501.6710 #### [facility] [address] [facility] [place], [place], [id number] T4 Free Directon 05-12-2025 T4 FREE DIRECT 1.00 ng/dL Normal 0.76-1.46 [facility] Comment on above: Order Comment: N Performed By: #### L 503.6150, L501.36390, L501.9520, L503.6550, L506.0400, L509.3001, L3300.1750, M100.2200, L3300.1500, L3300.3500, L3400.4600, L3410.9998, L801.2600, L803.0600, L3100.6427, L3100.7870, L3410.9992, L3410.9996, L400.0001, L101.9900, L100.0100, L300.4700, L501.9985, L500.4050, L501.6710 #### [facility] [address] [place], [place], [id number] Thyroid Stim Hormone (TSH)on 05-12-2025 TSH 1.230 uIU/mL Normal 0.300-4.20 0 [facility] Comment on above: Performed By: #### L 503.6150, L501.67761, L501.9520, L503.6550, L506.0400, L509.3001, L3300.1750, M100.2200, L3300.1500, L3300.3500, L3400.4600, L3410.9998, L801.2600, L803.0600, L3100.6427, L3100.7870, L3410.9992, L3410.9996, L400.0001, L101.9900, L100.0100, L300.4700, L501.9985, L500.4050, L501.6710 #### [facility] [address] [facility] [place], [place], [phone] Urinalysis, Completeon 05-12 EPI,SQUAMOUS 0-5 SEEN Normal 5-10 [facility] Comment on above: Order Comment: Urine , Random Performed By: #### L 503.6150, L501.58836, L501.9520, L503.6550, L506.0400, L509.3001, L3300.1750, M100.2200, L3300.1500, L3300.3500, L3400.4600, L3410.9998, L801.2600, L803.0600, L3100.6427, L3100.7870, L3410.9992, L3410.9996, L400.0001, L101.9900, L100.0100, L300.4700, L501.9985, L500.4050, L501.6710 #### [facility] [address] [facility] [place], [place], [id number] RBC 0-5 SEEN Normal 0-5 [facility] Comment on above: Order Comment: Urine , Random Performed By: #### L 503.6150, L501.58204, L501.9520, L503.6550, L506.0400, L509.3001, L3300.1750, M100.2200, L3300.1500, L3300.3500, L3400.4600, L3410.9998, L801.2600, L803.0600, L3100.6427, L3100.7870, L3410.9992, L3410.9996, L400.0001, L101.9900, L100.0100, L300.4700, L501.9985, L500.4050, L501.6710 #### [facility] [address] [place], [place], [id number] WBC 0-5 SEEN Normal 0-5 [facility] Comment on above: Order Comment: Urine , Random Performed By: #### L 503.6150, L501.18314, L501.9520, L503.6550, L506.0400, L509.3001, L3300.1750, M100.2200, L3300.1500, L3300.3500, L3400.4600, L3410.9998, L801.2600, L803.0600, L3100.6427, L3100.7870, L3410.9992, L3410.9996, L400.0001, L101.9900, L100.0100, L300.4700, L501.9985, L500.4050, L501.6710 #### [facility] [address] [facility] [place], [place], [id number] BACTERIA 0 SEEN Normal None Seen [facility] Comment on above: Order Comment: Urine , Random Performed By: #### L 503.6150, L501.03929, L501.9520, L503.6550, L506.0400, L509.3001, L3300.1750, M100.2200, L3300.1500, L3300.3500, L3400.4600, L3410.9998, L801.2600, L803.0600, L3100.6427, L3100.7870, L3410.9992, L3410.9996, L400.0001, L101.9900, L100.0100, L300.4700, L501.9985, L500.4050, L501.6710 #### [facility] [address] [place], [address] Mucus Ql (Urine sed) 0 SEEN Normal [facility] Comment on above: Order Comment: Urine , Random Performed By: #### L 503.6150, L501.16695, L501.9520, L503.6550, L506.0400, L509.3001, L3300.1750, M100.2200, L3300.1500, L3300.3500, L3400.4600, L3410.9998, L801.2600, L803.0600, L3100.6427, L3100.7870, L3410.9992, L3410.9996, L400.0001, L101.9900, L100.0100, L300.4700, L501.9985, L500.4050, L501.6710 #### [facility] [address] [place], [address] Celiac Disease Reflex [place] 04-07-2025 Tissue Transglutaminase (tTG) Ab, IgA <1.02 Normal 0.00-4.99 [facility] Comment on above: Result Comment: Tiss ue transglutaminase, IgA antibody below lower limit of detection. Deamidated gliadin peptide, IgA test to follow. INTERPRETIVE INFORMATION: Tissue Transglutaminase (tTG) Antibody, IgA Presence of the tissue transglutaminase (tTG) IgA antibody is associated with gluten-sensitive enteropathies such as celiac disease and dermatitis herpetiformis. Individuals with positive results should be confirmed with small intestinal biopsy to establish celiac disease diagnosis. tTG IgA antibody concentrations greater than 50 FLU exhibits higher correlation with results of duodenal biopsies consistent with celiac disease. For antibody concentrations greater than or equal to 5 FLU but less than 10 FLU, additional testing for endomysial (NEREIDA) IgA concentrations may improve the positive predictive value for disease. A decrease in tTG IgA antibody concentration after initiation of a gluten-free diet may indicate a response to therapy. Performed By: [facility] [address] [place] [id number] Carpet Cleaner: Tommy Villareal MD, PhD CLIA Number: [id number] Deamidated Gliadin Peptide ( DGP) Ab, IgAon 04-07-2025 Deamidated Gliadin Peptide (DGP) Ab, IgA <0.72 Normal 0.00-4.99 [facility] Comment on above: Result Comment: Deam idated Gliadin Peptide, IgA antibody below lower limit of detection. Low IgA antibody levels suspected. Immunoglobulin A test to follow. INTERPRETIVE INFORMATION: Deamidated Gliadin Peptide (DGP) Ab, IgA A positive deamidated gliadin (DGP) IgA antibody result is associated with celiac disease but is not to be used as an initial screening test due to its low specificity and only occasional positivity in celiac disease patients who are negative for tissue transglutaminase (tTG) IgA antibody. Performed By: [facility] [address] [place] [address] Carpet Cleaner: Tommy Villareal MD, PhD CLIA Number: [id number] Immunoglobulin Aon 5 Immunoglobulin A 109 mg/dL Normal 68-408 [facility] Comment on above: Result Comment: No f urther celiac disease serology testing to be performed. Performed By: [facility] [address] [place] [address] Carpet Cleaner: Tommy Villareal MD, PhD CLIA Number: [id number] Cortisolon 04-06-2025 Cortisol 10.5 ug/dL Normal 2.5-19.5 [facility] Comment on above: Result Comment: Cortisol Reference Range: AM 6.0-18.4 PM 2.7-10.5 Performed By: #### I HUSSEIN ####[facility] [facility] [phone] C-Reactive Proteinon 025 CRP [Mass/Vol] mg/L Normal 0.0-5.0 [facility] Comment on above: Performed By: #### C RP ####[facility] [facility] [phone] Comprehensive Metabolic Pane samuel 04-05-2025 Albumin [Mass/Vol] 4.4 g/dL Normal 3.5-4.6 [facility] Comment on above: Performed By: #### C MP ####[facility] [facility] [phone] ALP [Catalytic activity/Vol] 60 U/L Normal 40-130 [facility] Comment on above: Performed By: #### C MP ####[facility] [facility] [phone] ALT [Catalytic activity/Vol] 7 U/L Normal 0-33 [facility] Comment on above: Performed By: #### C MP ####[facility] [facility] [phone] Anion gap [Moles/Vol] 10 mmol/L Normal 9-15 [facility] Comment on above: Performed By: #### C MP ####[facility] [facility] [phone] AST [Catalytic activity/Vol] 14 U/L Normal 0-35 [facility] Comment on above: Performed By: #### C MP ####[facility] [facility] [phone] Bilirubin [Mass/Vol] 0.4 mg/dL Normal 0.2-0.7 [facility] Comment on above: Performed By: #### C MP ####[facility] [facility] [phone] Calcium [Mass/Vol] 9.6 mg/dL Normal 8.5-9.9 [facility] Comment on above: Performed By: #### C MP ####[facility] [facility] [phone] Chloride [Moles/Vol] 105 mmol/L Normal 95-107 [facility] Comment on above: Performed By: #### C MP ####[facility] [facility] [phone] CO2 [Moles/Vol] 25 mmol/L Normal 20-31 [facility] Comment on above: Performed By: #### C MP ####[facility] [facility] [phone] Creatinine [Mass/Vol] 0.56 mg/dL Normal 0.50-0.90 [facility] Comment on above: Performed By: #### C MP ####[facility] [place] [phone] GFR >90.0 Normal >60 [facility] Comment on above: Result Comment: Lucien lowec calculator link [email or web address] Effective Jun 25, 2022 These results are not intended for use in patients <18 years of age. eGFR results are calculated without a race factor using the 2020 CKD-EPI equation. Careful clinical correlation is recommended, particularly when comparing to results calculated using previous equations. The CKD-EPI equation is less accurate in patients with extremes of muscle mass, extra-renal metabolism of creatinine, excessive creatinine ingestion, or following therapy that affects renal tubular secretion. Performed By: #### C MP ####[facility] [facility] [phone] Globulin (S) [Mass/Vol] 2.8 g/dL Normal 2.3-3.5 [facility] Comment on above: Performed By: #### C MP ####[facility] [facility] [phone] Glucose [Mass/Vol] 97 mg/dL Normal 70-99 [facility] Comment on above: Performed By: #### C MP ####[facility] [facility] [phone] Potassium [Moles/Vol] 4.4 mmol/L Normal 3.4-4.9 [facility] Comment on above: Performed By: #### C MP ####[facility] [facility] [phone] Protein [Mass/Vol] 7.2 g/dL Normal 6.3-8.0 [facility] Comment on above: Performed By: #### C MP ####[facility] [facility] [phone] Sodium [Moles/Vol] 140 mmol/L Normal 135-144 [facility] Comment on above: Performed By: #### C MP ####[facility] [place] [phone] Urea nitrogen [Mass/Vol] 8 mg/dL Normal 8-23 [facility] Comment on above: Performed By: #### C MP ####[facility] [facility] [place] [phone] Cortisolon 04-05-2025 Collection Info. Normal [facility] Comment on above: Performed By: #### I HUSSEIN ####[facility] [facility] [place] [phone] Creatine Kinaseon 04-05-2025 CK [Catalytic activity/Vol] 38 U/L Normal 0-170 [facility] Comment on above: Performed By: #### C PK #### [facility] [address] [facility] [address] Sedimentation Rateon 025 Sedimentation Rate 8 mm Normal 0-30 [facility] Comment on above: Result Comment: ESR Units mm/Hr Performed By: #### E SR ####[facility] [facility] [place] [phone] TSH w/Reflexon 04-05-2025 TSH w/Reflex 0.884 uIU/mL Normal 0.440-3.86 [facility] Comment on above: Result Comment: Free T4 will automatically reflex with a TSH result of <0.270 or >4.200 Performed By: #### T SHR ####[facility] [facility] [place] [phone] Pain Mgt Drug Panel, Hi Res, Uron 02-28-2025 6-acetylmorphine (cutoff 20 ng/mL) Not detected Normal [facility] Comment on above: Result Comment: INTE RPRETIVE INFORMATION:6-acetylmorphine, U Positive Cutoff: 20 ng/mL Methodology: Mass Spectrometry 7-Aminoclonazepam (cutoff 40 ng/mL) Not detected Normal [facility] Comment on above: Result Comment: INTE RPRETIVE INFORMATION:7-Aminoclonazepam, U Positive Cutoff: 40 ng/mL Methodology: Mass Spectrometry Yllmx-TN-Gkvnatvezl (cutoff 20 ng/mL) Not detected [facility] Comment on above: Result Comment: INTE RPRETIVE INFORMATION:Kgwqw-IV-Ocomnqqwmy, U Positive Cutoff: 20 ng/mL Methodology: Mass Spectrometry Ogxrq-XO-Wyclgzdfp (cutoff 20 ng/mL) Not detected [facility] Comment on above: Result Comment: INTE RPRETIVE INFORMATION:Ywpgb-CM-Uevwrzlnr, U Positive Cutoff: 20 ng/mL Methodology: Mass Spectrometry Alprazolam (cutoff 40 ng/mL) Not detected [facility] Comment on above: Result Comment: INTE RPRETIVE INFORMATION:Alprazolam, U Positive Cutoff: 40 ng/mL Methodology: Mass Spectrometry Amphetamine (cutoff 100 ng/mL) Not detected [facility] Comment on above: Result Comment: INTE RPRETIVE INFORMATION:Amphetamine, U Positive Cutoff: 50 ng/mL Methodology: Mass Spectrometry Barbiturates (cutoff 200 ng/mL) Negative [facility] Comment on above: Result Comment: Pres umptive negative by immunoassay. Testing by mass spectrometry is available on request. INTERPRETIVE INFORMATION:Barbiturates Screen, U Positive Cutoff: 200 ng/mL Methodology: Immunoassay Benzoylecgonine Ql (U) Negative [facility] Comment on above: Result Comment: Pres umptive negative by immunoassay. Testing by mass spectrometry is available on request. INTERPRETIVE INFORMATION:Cocaine Screen, U Positive Cutoff: 150 ng/mL Methodology: Immunoassay Buprenorphine (cutoff 5 ng/mL) Not detected [facility] Comment on above: Result Comment: INTE RPRETIVE INFORMATION:Buprenorphine, U Positive Cutoff: 5 ng/mL Methodology: Mass Spectrometry Carisoprodol (cutoff 100 ng/mL) Negative [facility] Comment on above: Result Comment: Pres umptive negative by immunoassay. Testing by mass spectrometry is available on request. INTERPRETIVE INFORMATION: Carisoprodol Screen, U Positive Cutoff: 100 ng/mL Methodology: Immunoassay The carisoprodol immunoassay has cross-reactivity to carisoprodol and meprobamate. Clonazepam (cutoff 20 ng/mL) Not detected [facility] Comment on above: Result Comment: INTE RPRETIVE INFORMATION:Clonazepam, U Positive Cutoff: 20 ng/mL Methodology: Mass Spectrometry Codeine (cutoff 40 ng/mL) Not detected Normal [facility] Comment on above: Result Comment: INTE RPRETIVE INFORMATION: Codeine, U Positive Cutoff: 40 ng/mL Methodology: Mass Spectrometry Creatinine, Urine 42.6 mg/dL Normal 20.0-400.0 [facility] Diazepam (cutoff 50 ng/mL) Not detected Normal [facility] Comment on above: Result Comment: INTE RPRETIVE INFORMATION:Diazepam, U Positive Cutoff: 50 ng/mL Methodology: Mass Spectrometry EER Pain Mgt Drug Panel High Res/EMIT U See Note Normal [facility] Comment on above: Result Comment: Auth orized individuals can access the [employer] Enhanced Report with an [employer] Connect account using the following link. Your local lab can assist you in obtaining the patient report if you don't have a Connect account. [email or web address] Performed By: [facility] [address] [place] [id number] Carpet Cleaner: Tommy Villareal MD, PhD CLIA Number: [id number] Ethyl Glucuronide (cutoff 500 ng/mL) Negative Normal [facility] Comment on above: Result Comment: Pres umptive negative by immunoassay. Testing by mass spectrometry is available on request. INTERPRETIVE INFORMATION:Ethyl Glucuronide Screen, U Positive Cutoff: 500 ng/mL Methodology: Immunoassay Fentanyl (cutoff 2 ng/mL) Not detected Normal [facility] Comment on above: Result Comment: INTE RPRETIVE INFORMATION:Fentanyl, U Positive Cutoff: 2 ng/mL Methodology: Mass Spectrometry Gabapentin (cutoff 100 ng/mL) Not detected Normal [facility] Comment on above: Result Comment: INTE RPRETIVE INFORMATION:Gabapentin, U Positive Cutoff: 3,000 ng/mL Methodology: Mass Spectrometry Hydrocodone (cutoff 40 ng/mL) Not detected Normal [facility] Comment on above: Result Comment: INTE RPRETIVE INFORMATION:Hydrocodone, U Positive Cutoff: 40 ng/mL Methodology: Mass Spectrometry Hydromorphone (cutoff 40 ng/mL) Not detected Normal [facility] Comment on above: Result Comment: INTE RPRETIVE INFORMATION:Hydromorphone, U Positive Cutoff: 20 ng/mL Methodology: Mass Spectrometry Lorazepam (cutoff 60 ng/mL) Not detected Normal [facility] Comment on above: Result Comment: INTE RPRETIVE INFORMATION:Lorazepam, U Positive Cutoff: 60 ng/mL Methodology: Mass Spectrometry Marijuana Metabolite (cutoff 20 ng/mL) Negative Normal [facility] Comment on above: Result Comment: Pres umptive negative by immunoassay. Testing by mass spectrometry is available on request. INTERPRETIVE INFORMATION: THC (Cannabinoids) Screen, U Positive Cutoff: 50 ng/mL Methodology: Immunoassay MDA (cutoff 200 ng/mL) Not detected Normal [facility] Comment on above: Result Comment: INTE RPRETIVE INFORMATION:MDA, U Positive Cutoff: 200 ng/mL Methodology: Mass Spectrometry MDEA-Anya (cutoff 200 ng/mL) Not detected [facility] Comment on above: Result Comment: INTE RPRETIVE INFORMATION:MDEA, U Positive Cutoff: 200 ng/mL Methodology: Mass Spectrometry MDMA-Ecstasy (cutoff 200 ng/mL) Not detected Normal [facility] Comment on above: Result Comment: INTE RPRETIVE INFORMATION:MDMA, U Positive Cutoff: 200 ng/mL Methodology: Mass Spectrometry Meperidine metabolite (cutoff 50 ng/mL) Not detected [facility] Comment on above: Result Comment: INTE RPRETIVE INFORMATION:Meperidine metabolite, U Positive Cutoff: 50 ng/mL Methodology: Mass Spectrometry Methadone Ql (U) Negative [facility] Comment on above: Result Comment: Pres umptive negative by immunoassay. Testing by mass spectrometry is available on request. INTERPRETIVE INFORMATION: Methadone Screen, U Positive Cutoff: 150 ng/mL Methodology: Immunoassay Methamphetamine (cutoff 400 ng/mL) Not detected Normal [facility] Comment on above: Result Comment: INTE RPRETIVE INFORMATION:Methamphetamine, U Positive Cutoff: 200 ng/mL Methodology: Mass Spectrometry Methylphenidate (cutoff 100 ng/mL) Not detected Normal [facility] Comment on above: Result Comment: INTE RPRETIVE INFORMATION:Methylphenidate, U Positive Cutoff: 100 ng/mL Methodology: Mass Spectrometry Midazolam (cutoff 20 ng/mL) Not detected Normal [facility] Comment on above: Result Comment: INTE RPRETIVE INFORMATION:Midazolam, U Positive Cutoff: 20 ng/mL Methodology: Mass Spectrometry Morphine (cutoff 20 ng/mL) Not detected Normal [facility] Comment on above: Result Comment: INTE RPRETIVE INFORMATION:Morphine, U Positive Cutoff: 20 ng/mL Methodology: Mass Spectrometry Naloxone (cutoff 100 ng/mL) Not detected Normal [facility] Comment on above: Result Comment: INTE RPRETIVE INFORMATION:Naloxone, U Positive Cutoff: 100 ng/mL Methodology: Mass Spectrometry Norbuprenorphine (cutoff 20 ng/mL) Not detected Normal [facility] Comment on above: Result Comment: INTE RPRETIVE INFORMATION:Norbuprenorphine, U Positive Cutoff: 20 ng/mL Methodology: Mass Spectrometry Nordiazepam (cutoff 50 ng/mL) Not detected Normal [facility] Comment on above: Result Comment: INTE RPRETIVE INFORMATION:Nordiazepam, U Positive Cutoff: 50 ng/mL Methodology: Mass Spectrometry Norfentanyl (cutoff 2 ng/mL) Not detected Normal [facility] Comment on above: Result Comment: INTE RPRETIVE INFORMATION:Norfentanyl, U Positive Cutoff: 2 ng/mL Methodology: Mass Spectrometry Norhydrocodone (cutoff 100 ng/mL) Not detected Normal [facility] Comment on above: Result Comment: INTE RPRETIVE INFORMATION:Norhydrocodone, U Positive Cutoff: 100 ng/mL Methodology: Mass Spectrometry Noroxycodone (cutoff 100 ng/mL) Not detected Normal [facility] Comment on above: Result Comment: INTE RPRETIVE INFORMATION:Noroxycodone, U Positive Cutoff: 100 ng/mL Methodology: Mass Spectrometry Noroxymorphone (cutoff 100 ng/mL) Not detected Normal [facility] Comment on above: Result Comment: INTE RPRETIVE INFORMATION:Noroxymorphone, U Positive Cutoff: 100 ng/mL Methodology: Mass Spectrometry Oxazepam (cutoff 50 ng/mL) Not detected Normal [facility] Comment on above: Result Comment: INTE RPRETIVE INFORMATION:Oxazepam, U Positive Cutoff: 50 ng/mL Methodology: Mass Spectrometry Oxycodone (cutoff 40 ng/mL) Not detected Normal [facility] Comment on above: Result Comment: INTE RPRETIVE INFORMATION:Oxycodone, U Positive Cutoff: 40 ng/mL Methodology: Mass Spectrometry Oxymorphone (cutoff 40 ng/mL) Not detected Normal [facility] Comment on above: Result Comment: INTE RPRETIVE INFORMATION:Oxymorphone, U Positive Cutoff: 40 ng/mL Methodology: Mass Spectrometry Pain Management Drug Panel See Below Normal [facility] Comment on above: Result Comment: Meth odology: Qualitative Enzyme Immunoassay and Qualitative Liquid Chromatography-Tandem Mass Spectrometry, Quantitative Spectrophotometry The absence of expected drug(s) and/or drug metabolite(s) may indicate non-compliance, inappropriate timing of specimen collection relative to drug administration, poor drug absorption, diluted/adulterated urine, or limitations of testing. The concentration must be greater than or equal to the cutoff to be reported as present. If specific drug concentrations are required, contact the laboratory within two weeks of specimen collection to request quantification by a second analytical technique. Interpretive questions should be directed to the laboratory. Results based on immunoassay detection that do not match clinical expectations should be interpreted with caution. Confirmatory testing by mass spectrometry for immunoassay-based results is available, if ordered within two weeks of specimen collection. Additional charges apply. For medical purposes only; not valid for forensic use. This test was developed and its performance characteristics determined by [facility]. It has not been cleared or approved by the US Food and Drug Administration. This test was performed in a CLIA certified laboratory and is intended for clinical purposes. PCP (cutoff 25 ng/mL) Negative Normal [facility] Comment on above: Result Comment: Pres umptive negative by immunoassay. Testing by mass spectrometry is available on request. INTERPRETIVE INFORMATION:Phencyclidine Screen, U Positive Cutoff: 25 ng/mL Methodology: Immunoassay Phentermine (cutoff 100 ng/mL) Not detected Normal [facility] Comment on above: Result Comment: INTE RPRETIVE INFORMATION:Phentermine, U Positive Cutoff: 100 ng/mL Methodology: Mass Spectrometry Pregabalin (cutoff 100 ng/mL) Not detected Normal [facility] Comment on above: Result Comment: INTE RPRETIVE INFORMATION:Pregabalin, U Positive Cutoff: 3,000 ng/mL Methodology: Mass Spectrometry Tapentadol (cutoff 100 ng/mL) Not detected Normal [facility] Comment on above: Result Comment: INTE RPRETIVE INFORMATION:Tapentadol, U Positive Cutoff: 100 ng/mL Methodology: Mass Spectrometry Vkhqxwghkv-m-Uyhr (cutoff 200 ng/mL) Not detected Normal [facility] Comment on above: Result Comment: INTE RPRETIVE INFORMATION:Uxtpkkghra-z-Epsb, U Positive Cutoff: 200 ng/mL Methodology: Mass Spectrometry Temazepam (cutoff 50 ng/mL) Not detected Normal [facility] Comment on above: Result Comment: INTE RPRETIVE INFORMATION:Temazepam, U Positive Cutoff: 50 ng/mL Methodology: Mass Spectrometry Tramadol (cutoff 200 ng/mL) Negative Normal [facility] Comment on above: Result Comment: Pres umptive negative by immunoassay. Testing by mass spectrometry is available on request. INTERPRETIVE INFORMATION:Tramadol Screen, U Positive Cutoff: 100 ng/mL Methodology: Immunoassay Zolpidem (cutoff 20 ng/mL) Not detected Normal [facility] Comment on above: Result Comment: INTE RPRETIVE INFORMATION:Zolpidem, U Positive Cutoff: 20 ng/mL Methodology: Mass Spectrometry [facility] Miscellaneous test 1on 02-01-2025 Miscellaneous Test 1 SEE NOTE Abnormal [facility] Comment on above: Result Comment: Test name Result Flag Units RefIntvl COVID-19 IgG, Qualitative Positive A Negative A positive result suggests exposure to SARS-CoV-2 (COVID-19) but does not necessarily indicate immunity. Results from antibody testing should not be used as the sole basis to diagnose or exclude SARS-CoV-2 infection or to inform infection status. False positive results can occur due to past or present infection with zfk-MAEP-QlZ-2 coronavirus strains, such as coronavirus HKU1, NL63, OC43, or 229E. False positive results are possible in low prevalence settings even when an antibody test has greater than 98.0 percent specificity. To reduce the likelihood of a false positive result, the CDC Interim Guidelines for COVID-19 Antibody Testing suggest testing using two different antibody assays. INTERPRETIVE INFORMATION: COVID-19 IgG, Qualitative by [employer] The COVID-19 IgG, Qualitative by [employer] test is for in vitro diagnostic use under an FDA Emergency Use Authorization (EUA). In compliance with this authorization, please visit [email or web address] for more information and to access the applicable information sheets. This test should not be used for screening of donated blood. Use for the qualitative detection of IgG antibodies against the nucleocapsid protein of SARS-CoV-2 (COVID-19) that develop in response to natural infection with SARS-CoV-2. These antibodies do not develop as a result of a COVID-19 vaccination. There are no current recommendations for assessing COVID-19 vaccine response. Performed By: [facility] [address] [place] [id number] Carpet Cleaner: Tommy Villareal MD, PhD CLIA Number: [id number] Performed By: #### [id number] #### [facility] [address] [facility] [address] Testosterone, Free and Total on 01-28-2025 Sex Hormone Binding Globulin 60 nmol/L Normal 17-125 [facility] Testosterone [Mass/Vol] 35 ng/dL Normal 3-41 M [facility] Testosterone, Free 4.2 pg/mL Critically high 0.6-3.8 M [facility] Comment on above: Result Comment: Post -menopausal range: 0.6-3.8 The concentration of free testosterone is derived from a mathematical expression based on the constant for the binding of testosterone to albumin and/or sex hormone binding globulin. Performed at [facility], [address] [place] [id number] . [facility] Miscellaneous test 01-27-2025 Whopper Prompt [id number] [facility] Comment on above: Performed By: #### [id number] #### [facility] [address] [facility] [address] Estrogens, Fractionated by T MSon 12-01-2024 Estradiol by TMS 7.6 pg/mL [facility] Comment on above: Result Comment: REFE RENCE INTERVAL: Estradiol by Jig Grinder Set Up Operator For a complete set of all established reference intervals, refer to [employer].Porphyrio/Tests/Pub/[id number]. This test was developed and its performance characteristics determined by [facility]. It has not been cleared or approved by the US Food and Drug Administration. This test was performed in a CLIA certified laboratory and is intended for clinical purposes. Estrogens Total Calculation 18.8 pg/mL Normal [facility] Comment on above: Result Comment: Refe rence interval of estrogens (pg/mL) Estrone Estradiol Total Estrogens Early follicular <150.0 30.0-100.0 30.0-250.0 Late follicular 100.0-250.0 100.0-400.0 200.0-650.0 Luteal <200.0 50.0-150.0 50.0-350.0 Post-menopausal 3.0-32.0 2.0-21.0 5.0-52.0 REFERENCE INTERVAL: Estrogens Total Calculation For a complete set of all established reference intervals, refer to [employer]/Tests/Pub/[id number]. Performed By: [facility] [address] [place] [address] Carpet Cleaner: Tommy Villareal MD, PhD CLIA Number: [id number] Estrone by TMS 11.2 pg/mL Normal [facility] Comment on above: Result Comment: INTE RPRETIVE INFORMATION: Estrone by Jig Grinder Set Up Operator For a complete set of all established reference intervals, refer to [employer]/Tests/Pub/[id number]. This test was developed and its performance characteristics determined by [facility]. It has not been cleared or approved by the US Food and Drug Administration. This test was performed in a CLIA certified laboratory and is intended for clinical purposes. Progesterone Quanton 025 Progesterone, hplc-ms/ms 0.62 ng/mL Normal [facility] Comment on above: Result Comment: Fema les, 17 years and older Cycle Days Reference Interval (ng/mL) 1 - 6 ............... Less than or equal to 0.17 7 - 12 .............. Less than or equal to 1.35 13 - 15 .............. Less than or equal to 15.63 16 - 28 .............. Less than or equal to 25.55 Post-Menopausal ...... Less than or equal to 0.10 Reference Intervals (ng/mL): 1st Trimester ...... 6.25 - 45.46 2nd Trimester ..... 15.40 - 52.10 3rd Trimester ..... 24.99 - 99.92 REFERENCE INTERVAL: Progesterone Quantitative by HPLC-MS/MS, Serum or Plasma Access complete set of age- and/or gender-specific reference intervals for this test in the [employer] [facility] Test Directory (Porphyrio). This test was developed and its performance characteristics determined by [facility]. It has not been cleared or approved by the US Food and Drug Administration. This test was performed in a CLIA certified laboratory and is intended for clinical purposes. Performed By: [facility] [address] [place] [address] Carpet Cleaner: Tommy Villareal MD, PhD CLIA Number: [id number] Testosterone, Free and Total on 2024 Sex Hormone Binding Globulin 67 nmol/L Normal 17-125 [facility] Testosterone [Mass/Vol] 6 ng/dL Normal 3-41 M [facility] Testosterone, Free <1.0 Normal 0.6-3.8 [facility] Comment on above: Result Comment: Post -menopausal range: 0.6-3.8 The concentration of free testosterone is derived from a mathematical expression based on the constant for the binding of testosterone to albumin and/or sex hormone binding globulin. Performed at [address] [address] . SARS IgGon 11-14-2024 SARS-CoV-2 (COVID-19) Ab [Interp] Positive Invalid Interpretation Code [facility] Comment on above: Result Comment: Anti bodies against the SARS-CoV-2 spike protein, including the receptor binding domain (RBD) were detected. It is not yet known what level of antibody to SARS-CoV-2 spike protein correlates to immunity against developing symptomatic SARS-CoV-2 disease. This assay was performed using [employer](R) SARS-CoV-2 Trimeric S IgG assay. This test has not been FDA cleared or approved. This test has been authorized by FDA under an Emergency Use Authorization (EUA). This test is only authorized for the duration of the declaration that circumstances exist justifying the authorization of emergency use of in vitro diagnostics for detection and/or diagnosis of COVID-19 under Section 564(b)(1) of the Act, 21 U.S.C. 360bbb-3(b)(1), unless the authorization is terminated or revoked sooner. This test has been authorized only for detecting the presence of antibodies against SARS-CoV-2, not for any other viruses or pathogens. Performed at: [facility] [address] [place], [place] [id number] MD Denis Mcdonald Performed By: #### S ARS-CoV-2 Antibody, lgG #### [facility] [address] [place] [address] SARS-CoV-2 (COVID-19) IgG IA Qn 406.0 A unit/mL Invalid Interpretation Code Neg <13.0 [facility] Comment on above: Result Comment: This test has not been FDA cleared or approved. This test has been authorized by FDA under an Emergency Use Authorization (EUA). This test is only authorized for the duration of the declaration that circumstances exist justifying the authorization of emergency use of in vitro diagnostics for detection and/or diagnosis of COVID-19 under Section 564(b)(1) of the Act, 21 U.S.C. 360bbb-3(b)(1), unless the authorization is terminated or revoked sooner. This test has been authorized only for detecting the presence of antibodies against SARS-CoV-2, not for any other viruses or pathogens. Performed By: #### S ARS-CoV-2 Antibody, lgG #### [facility] [address] [place] [address] Tiarra-Domingo Virus Antibody Panel 1on 11-13-2024 EBV Ab To Early (D) Ag IgG <5.0 Normal 0.0-10.9 [facility] Comment on above: Result Comment: INTE RPRETIVE INFORMATION: Tiarra-Domingo Virus Antibody to Early D Antigen (EA-D), IgG 8.9 U/mL or less........Not Detected 9.0-10.9 U/mL...........Indeterminate - Repeat testing in 10-14 days may be helpful. 11.0 U/mL or greater....Detected Performed By: [facility] [address] [place] [address] Carpet Cleaner: Tommy Villareal MD, PhD CLIA Number: [id number] EBV Ab To Nuclear Ag IgG 153.0 U/mL Critically high 0.0-21.9 [facility] Comment on above: Result Comment: INTE RPRETIVE INFORMATION: Tiarra-Domingo Virus Antibody to Nuclear Antigen, IgG 17.9 U/mL or less.......Not Detected 18.0-21.9 U/mL..........Indeterminate - Repeat testing in 10-14 days may be helpful. 22.0 U/mL or greater....Detected EBV Ab To Viral Capsid Ag IgG 214.0 U/mL Critically high 0.0-21.9 [facility] Comment on above: Result Comment: INTE RPRETIVE INFORMATION: Tiarra-Domingo Virus Antibody to Viral Capsid Antigen, IgG 17.9 U/mL or less.......Not Detected 18.0-21.9 U/mL..........Indeterminate - Repeat testing in 10-14 days may be helpful. 22.0 U/mL or greater....Detected EBV Ab To Viral Capsid Ag IgM 13.1 U/mL Normal 0.0-43.9 [facility] Comment on above: Result Comment: INTE RPRETIVE INFORMATION: Tiarra-Domingo Virus Antibody to Viral Capsid Antigen, IgM 35.9 U/mL or less.......Not Detected 36.0-43.9 U/mL..........Indeterminate - Repeat testing in 10-14 days may be helpful. 44.0 U/mL or greater....Detected Lyme Abs, IgG and IgM by Masood avendaño Bloton 11-13-2024 Borrelia burgdorferi Ab, IgM By WB Negative Normal Negative [facility] Comment on above: Result Comment: Band (s) present: 23 kDa (Insufficient number of bands for positive result) INTERPRETIVE INFORMATION: B. burgdorferi Antibody IgM Immunoblot For this assay, a positive result is reported when any 2 or more of the following bands are present: 23, 39, or 41 kDa. All other banding patterns are reported as negative. Performed By: [facility] [address] [place] [address] Carpet Cleaner: Tommy Villareal MD, PhD CLIA Number: [id number] Borrelia burgdorferi IgG WB Negative Normal Negative [facility] Comment on above: Result Comment: Band (s) present: 58, 41 kDa (Insufficient number of bands for positive result) INTERPRETIVE INFORMATION: B. burgdorferi IgG Immunoblot For this assay, a positive result is reported when any 5 or more of the following 10 bands are present: 18, 23, 28, 30, 39, 41, 45, 58, 66, or 93 kDa. All other banding patterns are reported as negative. Thyroid Peroxidase(TPO) Abon 11-13-2024 Thyroid Peroxidase(TPO) Ab <4.0 Normal 0.0-25.0 [facility] Comment on above: Result Comment: Reference Range: <25.0 Negative 25.0-35.0 Equivocal >35.0 Positive When results are Equivocal, it is recommended to retest after 8-12 weeks. Performed at [facility], [address] [place] [address] . T3, Freeon 11-12-2024 Free T3 [Mass/Vol] 3.17 pg/mL Normal 2.00-4.40 [facility] Comment on above: Result Comment: Perf ormed at [facility], [address] [place] [address] . CBC With Platelet and Differ entialon 11-11-2024 Basophils (Bld) [#/Vol] 0.1 10*3/uL Normal 0.0-0.2 [facility] Comment on above: Performed By: #### C BCWD ####[facility] [facility] [phone] Basophils/100 WBC (Bld) 1.2 % Normal [facility] Comment on above: Performed By: #### C BCWD ####[facility] [facility] [phone] Eosinophils (Bld) [#/Vol] 0.1 10*3/uL Normal 0.0-0.7 [facility] Comment on above: Performed By: #### C BCWD ####[facility] [facility] [phone] Eosinophils/100 WBC (Bld) 1.6 % Normal [facility] Comment on above: Performed By: #### C BCWD ####[facility] [facility] [phone] Erythrocyte distribution width (RBC) [Ratio] 11.9 % Normal 11.5-14.5 [facility] Comment on above: Performed By: #### C BCWD ####[facility] [facility] [phone] Hematocrit (Bld) [Volume fraction] 42.5 % Normal 37.0-47.0 [facility] Comment on above: Performed By: #### C BCWD ####[facility] [facility] [phone] Hemoglobin (Bld) [Mass/Vol] 13.8 g/dL Normal 12.0-16.0 [facility] Comment on above: Performed By: #### C BCWD ####[facility] [facility] [phone] Lymphocytes (Bld) [#/Vol] 1.1 10*3/uL Normal 1.0-4.8 [facility] Comment on above: Performed By: #### C BCWD ####[facility] [facility] [phone] Lymphocytes/100 WBC (Bld) 19.5 % Normal [facility] Comment on above: Performed By: #### C BCWD ####[facility] [facility] [phone] MCH (RBC) [Entitic mass] 28.8 pg Normal 27.0-31.3 [facility] Comment on above: Performed By: #### C BCWD ####[facility] [facility] [phone] MCHC 32.5 % Low 33.0-37.0 [facility] Comment on above: Performed By: #### C BCWD ####[facility] [place] [phone] MCV (RBC) [Entitic vol] 88.7 fL Normal 79.4-94.8 [facility] Comment on above: Performed By: #### C BCWD ####[facility] [facility]ain [place] [phone] Monocytes (Bld) [#/Vol] 0.3 10*3/uL Normal 0.2-0.8 [facility] Comment on above: Performed By: #### C BCWD ####[facility] [facility]ain [place] [phone] Monocytes/100 WBC (Bld) 6.0 % Normal [facility] Comment on above: Performed By: #### C BCWD ####[facility] [facility] [address]G[facility] Hospitalain [place] [phone] Neutrophils (Bld) [#/Vol] 4.1 10*3/uL Normal 1.4-6.5 [facility] Comment on above: Performed By: #### C BCWD ####[facility] [place] [phone] Neutrophils/100 WBC (Bld) 71.3 % Normal [facility] Comment on above: Performed By: #### C BCWD ####[facility] [facility] [address] [place] [phone] Platelets (Bld) [#/Vol] 337 10*3/uL Normal 130-400 [facility] Comment on above: Performed By: #### C BCWD ####[facility] [facility] Hospitalain [place] [phone] RBC (Bld) [#/Vol] 4.79 10*6/uL Normal 4.20-5.40 [facility] Comment on above: Performed By: #### C BCWD ####[facility] [facility] Hospital[facility] [place] [phone] WBC (Bld) [#/Vol] 5.7 10*3/uL Normal 4.8-10.8 [facility] Comment on above: Performed By: #### C BCWD ####[facility] [facility] Hospitalain [place] [phone] Comprehensive Metabolic Pane samuel 11-11-2024 Albumin [Mass/Vol] 4.2 g/dL Normal 3.5-4.6 [facility] Comment on above: Performed By: #### C MP ####[facility] [facility] Hospitalain [place] [phone] ALP [Catalytic activity/Vol] 64 U/L Normal 40-130 [facility] Comment on above: Performed By: #### C MP ####[facility] [facility] [address]marily[address]Kin[address] [place] [phone] ALT [Catalytic activity/Vol] 15 U/L Normal 0-33 [facility] Comment on above: Performed By: #### C MP ####[facility] [place] [phone] Anion gap [Moles/Vol] 10 mmol/L Normal 9-15 [facility] Comment on above: Performed By: #### C MP ####[facility] [facility] [address] [place] [phone] AST [Catalytic activity/Vol] 18 U/L Normal 0-35 [facility] Comment on above: Performed By: #### C MP ####[facility] [facility] [phone] Bilirubin [Mass/Vol] 0.4 mg/dL Normal 0.2-0.7 [facility] Comment on above: Performed By: #### C MP ####[facility] Hospitalain [place] [phone] Calcium [Mass/Vol] 9.6 mg/dL Normal 8.5-9.9 [facility] Comment on above: Performed By: #### C MP ####[facility] [facility] [address] [place] [phone] Chloride [Moles/Vol] 105 mmol/L Normal 95-107 [facility] Comment on above: Performed By: #### C MP ####[facility] [facility] [phone] CO2 [Moles/Vol] 26 mmol/L Normal 20-31 [facility] Comment on above: Performed By: #### C MP ####[facility] ZhengOs[facility] [phone] Creatinine [Mass/Vol] 0.68 mg/dL Normal 0.50-0.90 [facility] Comment on above: Performed By: #### C MP ####[facility] [facility]heng[facility] [phone] GFR >90.0 Normal >60 [facility] Comment on above: Result Comment: Lucien atric calculator link https://www.kidney.org/professionals/kdoqi/gfr_calculatorped Effective Jun 25, 2022 These results are not intended for use in patients <18 years of age. eGFR results are calculated without a race factor using the 2020 CKD-EPI equation. Careful clinical correlation is recommended, particularly when comparing to results calculated using previous equations. The CKD-EPI equation is less accurate in patients with extremes of muscle mass, extra-renal metabolism of creatinine, excessive creatinine ingestion, or following therapy that affects renal tubular secretion. Performed By: #### C MP ####[facility] [facility]heng[facility] [phone] Globulin (S) [Mass/Vol] 3.1 g/dL Normal 2.3-3.5 [facility] Comment on above: Performed By: #### C MP ####[facility] [facility]heng[facility] [phone] Glucose [Mass/Vol] 98 mg/dL Normal 70-99 [facility] Comment on above: Performed By: #### C MP ####[facility] [facility]heng[facility] [phone] Potassium [Moles/Vol] 4.6 mmol/L Normal 3.4-4.9 [facility] Comment on above: Performed By: #### C MP ####[facility] [place] [phone] Protein [Mass/Vol] 7.3 g/dL Normal 6.3-8.0 [facility] Comment on above: Performed By: #### C MP ####[facility] [place] [phone] Sodium [Moles/Vol] 141 mmol/L Normal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 U/L Normal 34-104 [facility] Comment on above: Performed By: #### T 3T, CBC, LIPID, CMP, T3F, A1C WTH eA, TSH3 #### [address] ALT [Catalytic activity/Vol] 14 U/L Normal 7-52 [facility] Comment on above: Performed By: #### T 3T, CBC, LIPID, CMP, T3F, A1C WTH eA, TSH3 #### [facility] [address] [place] [address] [place] Anion gap [Moles/Vol] 7.4 mmol/L Normal 6.0-15.0 [facility] Comment on above: Performed By: #### T 3T, CBC, LIPID, CMP, T3F, A1C WTH eA, TSH3 #### [facility] [address] [place] [address] [place] AST [Catalytic activity/Vol] 16 U/L Normal 13-39 [facility] Comment on above: Performed By: #### T 3T, CBC, LIPID, CMP, T3F, A1C WTH eA, TSH3 #### [facility] [address] [place] [address] [place] Bilirubin [Mass/Vol] 0.8 mg/dL Normal 0.3-1.0 [facility] Comment on above: Performed By: #### T 3T, CBC, LIPID, CMP, T3F, A1C WTH eA, TSH3 #### [facility] [address] [place] [address] [place] Calcium [Mass/Vol] 9.3 mg/dL Normal 8.6-10.3 [facility] Comment on above: Performed By: #### T 3T, CBC, LIPID, CMP, T3F, A1C WTH eA, TSH3 #### [facility] [address] [place] [address] [place] Chloride [Moles/Vol] 107 mmol/L Normal 98-107 [facility] Comment on above: Performed By: #### T 3T, CBC, LIPID, CMP, T3F, A1C WTH eA, TSH3 #### [facility] [address] [place] [address] [place] CO2 [Moles/Vol] 29.5 mmol/L Normal 21.0-31.0 [facility] Comment on above: Performed By: #### T 3T, CBC, LIPID, CMP, T3F, A1C WTH eA, TSH3 #### [facility] [address] [place] [address] [place] Creatinine [Mass/Vol] 0.68 mg/dL Normal 0.60-1.20 [facility] Comment on above: Performed By: #### T 3T, CBC, LIPID, CMP, T3F, A1C WTH eA, TSH3 #### [facility] [address] [place] [address] [place] GFR/1.73 sq M.predicted MDRD (S/P/Bld) [Vol rate/Area] mL/min/{1.73_m2} Normal [facility] Comment on above: Performed By: #### T 3T, CBC, LIPID, CMP, T3F, A1C WTH eA, TSH3 #### [facility] [address] [place] [address] [place] Globulin (S) [Mass/Vol] 2.5 g/dL Normal [facility] Comment on above: Performed By: #### T 3T, CBC, LIPID, CMP, T3F, A1C WTH eA, TSH3 #### [facility] [address] Glucose [Mass/Vol] 90 mg/dL Normal 70-100 [facility] Comment on above: Result Comment: [facility] Glucose Reference Range is dependent on time and content of last meal. Glucose of more than 200 mg/dL in a nonstressed, ambulatory subject supports the diagnosis of Diabetes Mellitus. ADA recommended reference range Performed By: #### T 3T, CBC, LIPID, CMP, T3F, A1C WTH eA, TSH3 #### [place] [address] [place] Potassium [Moles/Vol] 3.9 mmol/L Normal 3.5-5.1 [facility] Comment on above: Performed By: #### T 3T, CBC, LIPID, CMP, T3F, A1C WTH eA, TSH3 #### [facility] [address] [id number] [place] Protein [Mass/Vol] 6.6 g/dL Normal 6.4-8.9 [facility] Comment on above: Performed By: #### T 3T, CBC, LIPID, CMP, T3F, A1C WTH eA, TSH3 #### [place] [address] [place] Sodium [Moles/Vol] 140 mmol/L Normal 136-145 [facility] Comment on above: Performed By: #### T 3T, CBC, LIPID, CMP, T3F, A1C WT eA, TSH3 #### [address] Urea nitrogen [Mass/Vol] 16 mg/dL Normal 7-25 [facility] Comment on above: Performed By: #### T 3T, CBC, LIPID, CMP, T3F, A1C WT eA, TSH3 #### [address] [facility] [place] Thyroxine (T4)on T4 [Mass/Vol] 5.9 ug/dL Normal 4.5-12.0 The [facility] Comment on above: Result Comment: Perf ormed at: - [facility] [address] [id number] [place] Office Telephone Clerk: Joe Aguilar PhD, Phone: [phone] PERFORMED BY: [place] [address] PATHOLOGIST CONTINUOUS IMPROVEMENT ANALYST MARISEL CALVILLO M.D. Performed By: #### L C T4 #### [facility] , Lipid Panelon 12-02-2023 Cholesterol [Mass/Vol] 190 mg/dL Normal 140-[address] [facility] Comment on above: Result Comment: Chol less than 200 mg/dl low risk Chol 201-239 mg/dl borderline risk Chol 240 mg/dl and greater high risk Performed By: #### T 3T, CBC, LIPID, CMP, T3F, A1C WT eA, TSH3 #### [address] Cholesterol in HDL [Mass/Vol] 61 mg/dL Normal 23-92 [facility] Comment on above: Result Comment: HDL CHOL ATP-III CLASSIFICATION Cardiovascular Risk HDL > or equal to 60 mg/dL LOW HDL < 40 mg/dL HIGH Performed By: #### T 3T, CBC, LIPID, CMP, T3F, A1C WT eA, TSH3 #### [address] Cholesterol.total/Yakelin sterol in HDL [Mass ratio] 3.1 {ratio} Normal <5.0 [facility] Comment on above: Performed By: #### T 3T, CBC, LIPID, CMP, T3F, A1C WTH eA, TSH3 #### [facility] [address] LDL Cholesterol,Calculated 116 mg/dL High 0-100 [facility] Comment on above: Result Comment: LDL ATP III CLASSIFICATION LDL less than 100 mg/dL Optimal LDL 100-129 mg/dL Near or above optimal LDL 130-159 mg/dL Borderline high LDL 160-189 mg/dL High LDL greater than 189 mg/dL Very high Performed By: #### T 3T, CBC, LIPID, CMP, T3F, A1C WTH eA, TSH3 #### [facility] [address] Triglyceride w/Reflex 65 mg/dL Normal 0-149 [facility] Comment on above: Result Comment: TRIG ATP III CLASSIFICATION TRIG less than 150 mg/dL Normal TRIG 150-199 mg/dL Borderline high TRIG 200-500 mg/dL High TRIG greater than 500 mg/dL Very high Standard traceable to the Center for Disease Conrtrol and Prevention (CDC) test method. Performed By: #### T 3T, CBC, LIPID, CMP, T3F, A1C WTH eA, TSH3 #### [facility] [address] VLDL CHOLESTEROL 13 mg/dL Normal The [facility] Comment on above: Performed By: #### T 3T, CBC, LIPID, CMP, T3F, A1C WTH eA, TSH3 #### [facility] [address] Thyroid Stimulating Hormoneo n 12-02-2023 TSH Qn 1.33 m[IU]/L Normal 0.45-5.33 The [facility] Comment on above: Result Comment: PERF ORMED BY: [place] [address] PATHOLOGIST CONTINUOUS IMPROVEMENT ANALYST MARISEL CALVILLO M.D. Performed By: #### T 3T, CBC, LIPID, CMP, T3F, A1C WTH eA, TSH3 #### [facility] [address] [place] [address] [place] Triiodothyronine (T3) Freeon 12-02-2023 Triiodothyronine (T3) Free 3.60 pg/mL Normal 2.50-3.90 The [facility] Comment on above: Result Comment: PERF ORMED BY: [place] [address] PATHOLOGIST CONTINUOUS IMPROVEMENT ANALYST MARISEL CALVILLO M.D. Performed By: #### T 3T, CBC, LIPID, CMP, T3F, A1C [facility] eA, TSH3 #### [facility] [address] Triiodothyronine (T3) Totalo n 12-02-2023 Triiodothyronine (T3) Total 1.41 ng/mL Normal 0.87-1.78 [facility] Comment on above: Performed By: #### T 3T, CBC, LIPID, CMP, T3F, A1C [facility] eA, TSH3 #### [address] COVID-19 Ab, IgGon 2 SARS-CoV-2 (COVID-19) Ab IA Ql [facility] [employer] Other Ceruloplasminon 07-25-2022 Ceruloplasmin 22.7 mg/dL 19.0-39.0 mg/dL [facility] [employer] Other Cortisolon 07-25-2022 Cortisol 17.6 ug/dL [facility] [employer] Other Dehydroepiandrosterone Sulfa yuri 07-25-2022 Dehydroepiandrosterone Sulfate 93.3 ug/dL 29.4-220.5 ug/dL [facility] [employer] Other Erythrocyte Sedimentation Ra yuri 07-25-2022 ESR (Bld) [Velocity] 13 mm/h Normal 0-29 [facility] Other Erythrocyte sedimentation ra te by Photometric methodOrdered By: Pamela Valentine on 07-25-2022 ESR Photometric method (Bld) [Velocity] 13 mm/hr 0-29 [facility] Estradiolon 07-25-2022 Estradiol 17.3 pg/mL . pg/mL [facility] Other Folateon 07-25-2022 Folate > 22.3 >5.9 [facility] Other Folate [Mass/volume] in Seru m or PlasmaOrdered By: Pamela Valentine on 07-25-2022 Folate [Mass/Vol] ng/mL >5.9 [facility] Comment on above: Folate reference ran ge: >5.9 ng/mlThe WHO technical consultation on folate and vitamin [id number] has determined that folate concentrations lessthan 4 ng/ml are considered deficient. Lyme, Total Ab with Reflexon 07-25-2022 Lyme, Total Ab with Reflex [facility] Other No Panel InformationOrdered By: Pamela Valentine on 07-25-2022 25-Hydroxy Vitamin D Total 33.7 ng/mL 30-100 [facility] Comment on above: VITAMIN D STATUS 25( OH)VITAMIN D RANGE (ng/mL) Deficient <20 Insufficient 20 to <30Sufficient 30 to 100Reference: Arnaldo MF,Justyna NC, Ari GREEN, et al. Evaluation,treatment, and prevention of vitamin D deficiency; an Endocrine Society clinical practice guideline. JCEM. 2010; 96(7):1911-30. Progesteroneon 07-25-2022 Progesterone 0.3 ng/mL . ng/mL [facility] Other Random cortisol measurementO rdered By: Pamela Valentine on 07-25-2022 Cortisol [Mass/Vol] 17.6 ug/dL [facility] Comment on above: Reference range: AM 6 - 24 ug/dl PM <10 ug/dl Rheumatoid Factoron 07-25-20 Rheumatoid Factor <10.0 <14.0 [employer] Other Sex Hormone Binding Globulin on 07-25-2022 Sex Hormone Binding Globulin 62.4 17.3-125.0 [facility] Other TSH DL <= 0.005 mIU/L QnOrde red By: Pamela Serge on 07-25-2022 TSH Qn 0.98 m[IU]/L 0.45-5.33 [facility] Testosterone Free & Totalon 07-25-2022 Testosterone Free & Total 0.5 pg/mL 0.0-4.2 pg/mL [facility] Other Thyroid Stimulating Hormoneo n 07-25-2022 TSH Qn [id number] m[IU]/L Normal 0.45-5 .33 u[iU]/mL [facility] Other Vitamin D 25 Hydroxy Totalon 07-25-2022 Vitamin D 25 Hydroxy Total 33.7 ng/mL Normal 30-100 ng/mL [facility] Other Vital Signs Date Time Vital Sign Value Performing Clinician Facility 09-29-2024 09:48-0500 Body height 162.5 cm Aidee Colmenares PA-C Work Phone: [facility] 09-29-2024 09:48-0500 Body mass index (BMI) [Ratio] 26.49 kg/m2 Aidee SIMON-C Work Phone: [facility] 09-29-2024 09:48-0500 Body temperature 96.91 [degF] Aidee SIMON-C Work Phone: [facility] 09-29-2024 09:48-0500 Body weight 69.95 kg Aidee Colmenares PA-C Work Phone: [facility] 09-29-2024 09:48-0500 Diastolic blood pressure 74 mm[Hg] Aidee SIMON-C Work Phone: [facility] 09-29-2024 09:48-0500 Heart rate 78 /min Aidee SIMON-C Work Phone: [facility] 09-29-2024 09:48-0500 SaO2% (BldA) [Mass fraction] 100 % Aidee Colmenares PA-C Work Phone: [facility] 09-29-2024 09:48-0500 Systolic blood pressure 144 mm[Hg] Aidee Colmenares PA-C Work Phone: [facility] 06-23-2024 10:58-0400 Body mass index (BMI) [Ratio] 26.2 kg/m2 DO Pamela Serge Work Phone: [facility] 06-23-2024 10:58-0400 Body temperature 96.9 [degF] DO Pamela Serge Work Phone: [facility] 06-23-2024 10:58-0400 Diastolic blood pressure 70 mm[Hg] DO Pamela Serge Work Phone: [facility] 06-23-2024 10:58-0400 Heart rate 89 /min DO Pamela Serge Work Phone: [facility] 06-23-2024 10:58-0400 Respiratory rate 18 /min DO Pamela Serge Work Phone: [facility] 06-23-2024 10:58-0400 SaO2% (BldA) [Mass fraction] 99 % DO Pamela Serge Work Phone: [facility] 06-23-2024 10:58-0400 Systolic blood pressure 110 mm[Hg] DO Pamela Serge Work Phone: [facility] 06-23-2024 10:27-0400 Body height 161.29 cm DO Pamela Serge Work Phone: [facility] 06-23-2024 10:27-0400 Body weight 68.03 kg DO Pamela Serge Work Phone: [facility] 05-22-2024 10:27-0400 Body height 161.29 cm DO Pamela Serge Work Phone: [facility] 05-22-2024 10:27-0400 Body mass index (BMI) [Ratio] 25.9 kg/m2 DO Pamela Serge Work Phone: [facility] 05-22-2024 10:27-0400 Body temperature 98 [degF] DO Pamela Serge Work Phone: [facility] 05-22-2024 10:27-0400 Body weight 67.58 kg DO Pamela Serge Work Phone: [facility] 05-22-2024 10:27-0400 Diastolic blood pressure 62 mm[Hg] DO Pamela Serge Work Phone: [facility] 05-22-2024 10:27-0400 Heart rate 88 /min DO Pamela Serge Work Phone: [facility] 05-22-2024 10:27-0400 Respiratory rate 16 /min DO Pamela Serge Work Phone: [facility] 05-22-2024 10:27-0400 SaO2% (BldA) [Mass fraction] 98 % DO Pamela Serge Work Phone: [facility] 05-22-2024 10:27-0400 Systolic blood pressure 128 mm[Hg] DO Pamela Serge Work Phone: [facility] 04-01-2024 10:40-0400 Body height 161.29 cm DO Pamela Serge Work Phone: [facility] 04-01-2024 10:40-0400 Body mass index (BMI) [Ratio] 27 kg/m2 DO Pamela Serge Work Phone: [facility] 04-01-2024 10:40-0400 Body temperature 98.4 [degF] DO Pamela Serge Work Phone: [facility] 04-01-2024 10:40-0400 Body weight 70.3 kg DO Pamela Serge Work Phone: [facility] 04-01-2024 10:40-0400 Diastolic blood pressure 62 mm[Hg] DO Pamela Serge Work Phone: [facility] 04-01-2024 10:40-0400 Heart rate 80 /min DO Pamela Serge Work Phone: [facility] 04-01-2024 10:40-0400 Respiratory rate 18 /min DO Pamela Serge Work Phone: [facility] 04-01-2024 10:40-0400 SaO2% (BldA) [Mass fraction] 98 % DO Pamela Serge Work Phone: [facility] 04-01-2024 10:40-0400 Systolic blood pressure 102 mm[Hg] DO Pamela Serge Work Phone: [facility] 11-04-2023 10:15-0500 Body height 161.29 cm Pamela Serge Other [facility] Other 11-04-2023 10:15-0500 Body mass index (BMI) [Ratio] 24.93 kg/m2 Pamela Serge Other [facility] Other 11-04-2023 10:15-0500 Body temperature 97.8 [degF] Pamela Serge Other [facility] Other 11-04-2023 10:15-0500 Body weight 64.86 kg Pamela Serge Other [facility] Other 11-04-2023 10:15-0500 Diastolic blood pressure 70 mm[Hg] Pamela Serge Other [facility] Other 11-04-2023 10:15-0500 Respiratory rate 18 /min Pamela Serge Other [facility] Other 11-04-2023 10:15-0500 SaO2% (BldA) [Mass fraction] 99 % Pamela Serge Other [facility] Other 11-04-2023 10:15-0500 Systolic blood pressure 122 mm[Hg] Pamela Serge Other [facility] Other 10-03-2023 15:45-0500 Body height 161.29 cm Pamela Serge Other [facility] Other 10-03-2023 15:45-0500 Body mass index (BMI) [Ratio] 23.36 kg/m2 Pamela Serge Other [facility] Other 10-03-2023 15:45-0500 Body temperature 97.9 [degF] Pamela Serge Other [facility] Other 10-03-2023 15:45-0500 Body weight 60.78 kg Pamela Serge Other [facility] Other 10-03-2023 15:45-0500 Diastolic blood pressure 76 mm[Hg] Pamela Serge Other [facility] Other 10-03-2023 15:45-0500 Respiratory rate 16 /min Pamela Serge Other [facility] Other 10-03-2023 15:45-0500 SaO2% (BldA) [Mass fraction] 98 % Pamela Serge Other [facility] Other 10-03-2023 15:45-0500 Systolic blood pressure 126 mm[Hg] Pamela Serge Other [facility] Other 11-14-2022 09:15-0500 Body height 161.29 cm Pamela Serge Other [facility] Other 11-14-2022 09:15-0500 Body mass index (BMI) [Ratio] 24.76 kg/m2 Pamela Serge Other [facility] Other 11-14-2022 09:15-0500 Body temperature 97.5 [degF] Pamela Serge Other [facility] Other 11-14-2022 09:15-0500 Body weight 64.41 kg Pamela Serge Other [facility] Other 11-14-2022 09:15-0500 Diastolic blood pressure 82 mm[Hg] Pamela Serge Other [facility] Other 11-14-2022 09:15-0500 Respiratory rate 16 /min Pamela Serge Other [facility] Other 11-14-2022 09:15-0500 SaO2% (BldA) [Mass fraction] 99 % Pamela Serge Other [facility] Other 11-14-2022 09:15-0500 Systolic blood pressure 126 mm[Hg] Pamela Serge Other [facility] Other 10-24-2022 09:30-0500 Body height 161.29 cm Pamela Serge Other [facility] Other 10-24-2022 09:30-0500 Body mass index (BMI) [Ratio] 25.11 kg/m2 Pamela Serge Other [facility] Other 10-24-2022 09:30-0500 Body temperature 97.4 [degF] Pamela Serge Other [facility] Other 10-24-2022 09:30-0500 Body weight 65.32 kg Pamela Serge Other [facility] Other 10-24-2022 09:30-0500 Diastolic blood pressure 60 mm[Hg] Pamela Serge Other [facility] Other 10-24-2022 09:30-0500 Respiratory rate 16 /min Pamela Serge Other [facility] Other 10-24-2022 09:30-0500 SaO2% (BldA) [Mass fraction] 99 % Pamela Serge Other [facility] Other 10-24-2022 09:30-0500 Systolic blood pressure 112 mm[Hg] Pamela Serge Other [facility] Other 08-24-2022 09:45-0500 Body height 161.29 cm Pamela Serge Other [facility] Other 08-24-2022 09:45-0500 Body mass index (BMI) [Ratio] 23.54 kg/m2 Pamela Serge Other [facility] Other 12-02-2022 09:45-0500 Body temperature 96.9 [degF] Pamela Serge Other [facility] Other 08-24-2022 09:45-0500 Body weight 61.24 kg Pamela Serge Other [facility] Other 08-24-2022 09:45-0500 Diastolic blood pressure 68 mm[Hg] Pamela Serge Other [facility] Other 08-24-2022 09:45-0500 Respiratory rate 16 /min Pamela Serge Other [facility] Other 08-24-2022 09:45-0500 SaO2% (BldA) [Mass fraction] 80 % Pamela Serge Other [facility] Other 08-24-2022 09:45-0500 Systolic blood pressure 118 mm[Hg] Pamela Serge Other [facility] Other 07-24-2022 16:00-0400 Body height 161.29 cm Pamela Serge Other [facility] Other 07-24-2022 16:00-0400 Body mass index (BMI) [Ratio] 23.71 kg/m2 Pamela Serge Other [facility] Other 07-24-2022 16:00-0400 Body temperature 96.3 [degF] Pamela Serge Other [facility] Other 07-24-2022 16:00-0400 Body weight 61.69 kg Pamela Serge Other [facility] Other 07-24-2022 16:00-0400 Diastolic blood pressure 62 mm[Hg] Pamela Serge Other [facility] Other 07-24-2022 16:00-0400 Respiratory rate 16 /min Pamela Serge Other [facility] Other 07-24-2022 16:00-0400 SaO2% (BldA) [Mass fraction] 98 % Pamela Serge Other [facility] Other 07-24-2022 16:00-0400 Systolic blood pressure 108 mm[Hg] Pamela Serge Other [facility] Other 09-28-2021 11:30-0500 Body height 161.29 cm Pamela Serge Other [facility] Other 09-28-2021 11:30-0500 Body mass index (BMI) [Ratio] 24.76 kg/m2 Pamela Serge Other [facility] Other 09-28-2021 11:30-0500 Body temperature 98.5 [degF] Pamela Serge Other [facility] Other 09-28-2021 11:30-0500 Body weight 64.41 kg Pamela Serge Other [facility] Other 09-28-2021 11:30-0500 Diastolic blood pressure 72 mm[Hg] Pamela Serge Other [facility] Other 09-28-2021 11:30-0500 Respiratory rate 16 /min Pamela Serge Other [facility] Other 09-28-2021 11:30-0500 SaO2% (BldA) [Mass fraction] 98 % Pamela Dominguezgles Other [facility] Other 09-28-2021 11:30-0500 Systolic blood pressure 100 mm[Hg] Pamela Dominguezgles Other [facility] Other Encounters Encounter Date Encounter Type Care Provider Facility Start: 05-12-2025 ambulatory Ailyn Anaya NP Fa cility:[facility] Start: 04-01-2025 End: 04-01-2025 ambulatory Aidee Colmenares PA-C [facility] Start: 04-01-2025 End: 04-01-2025 Follow-up encounter Aidee Colmenares PA-C Work Phone: [facility] Comment on above: Other ([facility] ) Start: 11-11-2024 End: 11-11-2024 ambulatory Andrew MATIAS Facility:[facility] Start: 11-11-2024 End: 11-11-2024 Patient encounter procedure Andrew MATIAS [facility] Start: 10-20-2024 End: 10-20-2024 ambulatory PAMELA DOMINGUEZGLES Facility:[facility] Start: 10-20-2024 End: 10-20-2024 Patient encounter procedure PAMELA Tam DOMINGUEZSERGE [facility] Start: 10-14-2024 End: 10-14-2024 Telephone encounter Daniel Romero MD Work Phone: Provider Adult Comment on above: Call Back 48 Hours Start: 10-07-2024 End: 10-07-2024 [facility] Daniel Romero MD Work Phone: Psychiatry Comment on above: PTSD (post-traumatic stress disorder) (Primary Dx); Depression, unspecified depression type; Anxiety Start: 09-30-2024 End: 09-30-2024 Telephone encounter Aidee Colmenares PA-C Work Phone: [facility] Start: 09-29-2024 End: 09-29-2024 ambulatory AIDEE COLMENARES Facility:[facility] Start: 09-29-2024 End: 09-29-2024 Office outpatient new 60 minutes Aidee Colmenares PA-C Work Phone: [facility] Comment on above: Anxiety (Primary Dx) ; Depression, unspecified depression type; Stress reaction; Mood changes; Fatigue, unspecified type; Activity intolerance; PTSD (post-traumatic stress disorder); Post viral syndrome Start: 09-25-2024 End: 09-25-2024 Telephone encounter Aidee Colmenares PA-C Work Phone: [facility] Comment on above: Intake ([facility] pre-visit phone call/) Start: 06-23-2024 End: 06-23-2024 ambulatory DO Pamela M. Serge Work Phone: [facility] Work Phone: Start: 06-23-2024 End: 06-23-2024 Patient encounter procedure DO Pamela Serge Work Phone: [facility] Work Phone: Start: 05-26-2024 Non-patient / Non-visit DO Set h Serge Work Phone: [facility] Work Phone: Start: 05-22-2024 End: 05-22-2024 Patient encounter procedure DO Pamela Serge Work Phone: [facility] Work Phone: Start: 05-11-2024 Non-patient / Non-visit DO Set h Serge Work Phone: [facility] Work Phone: Start: 04-01-2024 End: 04-01-2024 Patient encounter procedure DO Pamela Serge Work Phone: [facility] Work Phone: Start: 12-12-2023 End: 12-12-2023 ambulatory PAMELA M SERGE Facility:[facility] Start: 12-12-2023 End: 12-12-2023 Patient encounter procedure PAMELA M SERGE [facility] Start: 12-02-2023 End: 12-02-2023 ambulatory Patricia Beth Facility:[facility] Start: 11-04-2023 End: 11-04-2023 ambulatory Pamela Serge Other [facility] Other Start: 11-04-2023 Office outpatient vi sit 25 minutes Pamela Serge [facility] Start: 10-29-2023 End: 10-29-2023 ambulatory Pamela Serge Other [facility] Other Start: 10-29-2023 Telephone encounter Pamela Serge [facility] Start: 10-21-2023 End: 10-21-2023 ambulatory Pamela Serge Other [facility] Other Start: 10-21-2023 Telephone encounter Pamela Serge [facility] Start: 10-03-2023 End: 10-03-2023 ambulatory Pamela Serge Other [facility] Other Start: 10-03-2023 Office outpatient vi sit 40 minutes Pamela Serge [facility] Start: 10-03-2023 Telephone encounter Pamela Serge [facility] Start: 11-14-2022 End: 11-14-2022 ambulatory Pamela Serge Other [facility] Other Start: 11-14-2022 Office outpatient vi sit 25 minutes Pamela Serge [facility] Start: 11-12-2022 End: 11-12-2022 ambulatory Pamela Serge Other [facility] Other Start: 11-12-2022 Telephone encounter Pamela Serge [facility] Start: 10-25-2022 End: 10-25-2022 ambulatory Pamela Serge Other [facility] Other Start: 10-25-2022 Telephone encounter Pamela Serge [facility] Start: 10-24-2022 End: 10-24-2022 ambulatory Pamela Serge Other [facility] Other Start: 10-24-2022 Office outpatient vi sit 25 minutes Pamela Serge [facility] Start: 10-24-2022 Telephone encounter Pamela Serge [facility] Start: 10-22-2022 End: 10-22-2022 ambulatory Pamela Serge Other [facility] Other Start: 10-22-2022 Telephone encounter Pamela Serge [facility] Start: 10-04-2022 End: 10-04-2022 ambulatory Pamela Serge Other [facility] Other Start: 10-04-2022 Telephone encounter Pamela Serge [facility] Start: 09-19-2022 End: 09-19-2022 ambulatory Pamela Serge Other [facility] Other Start: 09-19-2022 Telephone encounter Pamela Serge [facility] Start: 08-28-2022 End: 08-28-2022 ambulatory Pamela Serge Other [facility] Other Start: 08-28-2022 Telephone encounter Pamela Serge [facility] Start: 08-24-2022 End: 08-24-2022 ambulatory Pamela Serge Other [facility] Other Start: 08-24-2022 Office outpatient vi sit 25 minutes Pamela Serge [facility] Start: 08-24-2022 Telephone encounter Pamela Serge [facility] Start: 08-23-2022 End: 08-23-2022 ambulatory Pamela Serge Other [facility] Other Start: 08-23-2022 Telephone encounter Pamela Serge [facility] Start: 08-03-2022 End: 08-03-2022 ambulatory Pamela Serge Other [facility] Other Start: 08-03-2022 Telephone encounter Pamela Serge [facility] Start: 08-02-2022 End: 08-02-2022 ambulatory Pamela Serge Other [facility] Other Start: 08-02-2022 Telephone encounter Pamela Serge [facility] Start: 07-30-2022 End: 07-30-2022 ambulatory Pamela Serge Other [facility] Other Start: 07-30-2022 Encounter by compute r link Pamela Serge [facility] Start: 07-27-2022 End: 07-27-2022 ambulatory Pamela Serge Other [facility] Other Start: 07-27-2022 Telephone encounter Pamela Serge [facility] Start: 07-25-2022 Telephone encounter Pamela Serge [facility] Start: 07-25-2022 End: 07-25-2022 ambulatory DO Pamela M. Serge Work Phone: [facility] Work Phone: Start: 07-25-2022 End: 07-25-2022 Patient encounter procedure DO Pamela Serge Work Phone: [facility] [place] Start: 07-24-2022 End: 07-24-2022 ambulatory Pamela Serge Other [facility] Other Start: 07-24-2022 Office outpatient vi sit 25 minutes Pamela Serge [facility] Start: 07-05-2022 End: 07-05-2022 ambulatory Pamela Serge Other [facility] Other Start: 07-05-2022 Telephone encounter Pamela Serge [facility] Start: 12-04-2021 End: 12-04-2021 ambulatory Pamela Serge Other [facility] Other Start: 12-04-2021 Telephone encounter Pamela Serge [facility] Start: 10-03-2021 End: 10-03-2021 ambulatory Pamela Serge Other [facility] Other Start: 10-03-2021 Telephone encounter Pamela Serge [facility] Start: 09-28-2021 End: 09-28-2021 ambulatory Pamela Serge Other [facility] Other Start: 09-28-2021 Office outpatient vi sit 15 minutes Pamela Serge [facility] Start: 09-28-2021 Telephone encounter Pamela Valentine [facility] Procedures Date Procedure Procedure Detail Performing Clinician Start: 08-16-2004 Lipid 1996 panel - S kelvin or Plasma Aidee Colmenares PA-C Work Phone: Plan of Treatment Date Care Activity Detail Author Start: 11-29-2039 RSV Vaccine (1 - 1-dose 75+ series) RSV Vaccine (1 - 1-dose 75+ series) [facility] [facility] Start: 09-29-2027 Diabetes Screening Diabetes Screening [facility] Start: 05-24-2025 Influenza vaccination Influenza Vaccine (#1) [facility] Start: 10-27-2024 End: 10-27-2024 Follow-up encounter 10/27/2024 3:00 PM [facility] Pulmonology [facility] [address] [place], [place] [id number] Aidee Colmenares PA-C [address] [place] [address] Recover follow up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 female with a history of trauma, significant somatic symptoms over a prolonged period following a COVID infection in 2020. Her symptoms are consistent with both PTSD as well as anxiety, and depression. She is otherwise a low risk of harming herself or others. DIAGNOSIS: 1. PTSD -- exacerbated in the long- COVID setting 2. Depression PLAN : 1. Discontinue the dextremethorphan/bupropion combo 2. Start bupropion 150mg XL daily monotherapy 3. Continue alprazolam PRN BID 0.5mg as written 4. Can continue zolpidem for now 5. Follow up with Dr. Romero in 8 weeks SIGNATURE: Daniel Romero MD PATIENT NAME: Tari Ayers DATE: October 07, 2024 TIME: 10:10 AM documented in this encounter [facility] 09-30-2024 Telephone encounter Note Called and update patient per preceding provider comment. She verbalized understanding [facility] 09-30-2024 Miscellaneous Notes Called and update patient per preceding provider comment. She verbalized understanding JAMIR: 09/29/2024 Future OV: 10/27/2024 Name of Caller: Tari Relationship to patient: patient Last visit in this department: 09/29/2024 Reason for Call: Other : pt wanted to let Aidee more symptoms that she forgot to tell you she still has no taste and no enjoyment of food Callback number: [phone] documented in this encounter [facility] 09-30-2024 Telephone encounter Note JAMIR: 09/29/2024 Future OV: 10/27/2024 [facility] 09-30-2024 Telephone encounter Note Name of Caller: Tari Relationship to patient: patient Last visit in this department: 09/29/2024 Reason for Call: Other : pt wanted to let Aidee more symptoms that she forgot to tell you she still has no taste and no enjoyment of food Callback number: [phone] [facility] 09-29-2024 Instructions Aidee Colmenares PA-C - 09/29/2024 10:37 AM EST Welcome to [facility]! The 'COV' represents SARS-CoV-2, also known as COVID-19. Our clinic's mission is to assess and guide individuals who are experiencing long-term effects of COVID-19 to state of the art care paths tailored to fit each person. You just had your initial visit with the [facility]! Next, you will be undergoing additional tests to further assess your current symptoms. Once you have these tests completed, you will have another visit to review these results. We will then direct you down the appropriate care path with a specialist for further treatment based on those results and your current symptoms. We would like to continue to monitor your health over the next 12 months following your visit to the [facility] Department. You will receive an invitation in your makerist account asking you to complete questionnaires at 3, 6. 9 and 12 months after your visit to the department. The questionnaires will be similar to those you completed prior to your visit asking about fatigue, mental function, sleep disturbance, depression, anxiety and your quality of life. - The [facility] Team You may have your labs as walk-in appointments at a [facility] facility. We will schedule you for our virtual follow up today before you leave. If you need to reach us the best way is to call [phone] and ask for [facility]. A consult to Psychiatry was placed, someone will be in touch to schedule your appointment. If no one contacts you in the next week please call [phone] to schedule with Psychiatry. documented in this encounter [facility] 09-29-2024 History of Presen t illness Narrative Images from the original note were not included. [facility] Initial Evaluation Tari Ayers presents to [facility] at the request of No ref. provider found for evaluation of prolonged, > 28 days, symptoms attributed to COVID-19 infection. They have requested this consultation via eConsult and will be communicated to via the EMR or [place] Post Office Correspondence. Positive COVID-19 Test: no Date of Positive Test: suspected COVID June 28 2021, also August 2021 HPI: Tari Ayers is a 58 year old female with primary symptoms as listed below: Description of their course of COVID-19 illness. 1. Symptoms began on 06/28/2021 2. Hospitalization? No 3. Was the patient on oxygen? No 4. Was patient discharged on oxygen? No 5. Was there an ICU stay? No 6. Was the patient intubated? No 7. Were there any COVID-19 medications given? No 8. Were there significant complications from the patients COVID-19 Illness? No 9. Has the patient received the COVID Vaccine? NO COVID-19 Symptom Review Most significant symptoms: Fatigue: Fatigue after activities. Has to take frequent sitting rest breaks lasting 15 minutes-2 hours. Some days worse than other days. This is worse on days that anxiety and depression is bad. Mood changes/anxiety attacks: Increased depression, anxiety since COVID. Increased feelings of sadness and crying. Little interest and pleasure in doing things. Reports panic attacks, including palpitations and SOB when this occurs daily. Has ruminating thoughts. Second guessing herself. Feels overwhelmed being out in public, lots of worry about getting sick again. On auvelity feels improved with this, however reports sharp stabbing head pain as side effect. Also has xanax and ambien. She has tried many different medications Of note does have documented PTSD in her chart going back well before COVID, in 2003. Denies REGLA GUEVARA. Established with the following specialists: 2 different functional doctors. Review of Systems Psychiatric/Behavioral: Positive for dysphoric mood. The patient is nervous/anxious. No past medical history on file. Medication Review: Current Outpatient Medications on File Prior to Visit Medication Sig albuterol sulfate(PROVENTIL HFA 90 MCG/ACTUATION AEROSOL INHALER) 2 puffs qid prn, dispense with spacer and instruct No current facility-administered medications on file prior to visit. Objective Findings: Vitals: BP 144/74 (BP Site: Right Arm, BP Position: Sitting, BP Cuff Size: Regular Adult) Pulse 78 Temp 36.1 C (96.9 F) (Temporal) Ht 162.5 cm (5' 3.98) Wt 70 kg (154 lb 3.4 oz) LMP 12/04/2005 SpO2 100% BMI 26.49 kg/m Initial Screening Questionaires review: Patient Entered Questionnaires PROMIS/NeuroQoL Score Percentiles Percentiles provide an indication of how a patient s score ranks in relation to the [place] general population. > 31st percentile is within normal limits or better * < 31st percentile is at least SD worse than population, which may be clinically relevant < 16th percentile is at least 1 SD worse than population and warrants attention Physical Examination: Physical Exam Vitals and nursing note reviewed. Constitutional: General: She is not in acute distress. Appearance: Normal appearance. She is not ill-appearing, toxic-appearing or diaphoretic. HENT: Head: Normocephalic and atraumatic. Right Ear: External ear normal. Left Ear: External ear normal. Eyes: Extraocular Movements: Extraocular movements intact. Conjunctiva/sclera: Conjunctivae normal. Pupils: Pupils are equal, round, and reactive to light. Cardiovascular: Rate and Rhythm: Normal rate and regular rhythm. Pulses: Normal pulses. Heart sounds: Normal heart sounds. Pulmonary: Effort: Pulmonary effort is normal. No respiratory distress. Breath sounds: Normal breath sounds. No stridor. No decreased breath sounds, wheezing, rhonchi or rales. Chest: Chest wall: No tenderness. Musculoskeletal: Cervical back: Normal range of motion and neck supple. Right lower leg: No edema. Left lower leg: No edema. Lymphadenopathy: Cervical: No cervical adenopathy. Skin: Capillary Refill: Capillary refill takes less than 2 seconds. Coloration: Skin is not jaundiced or pale. Findings: No bruising or rash. Neurological: Mental Status: She is alert and oriented to person, place, and time. Cranial Nerves: No cranial nerve deficit. Sensory: No sensory deficit. Motor: No weakness, tremor or abnormal muscle tone. Gait: Gait and tandem walk normal. Psychiatric: Mood and Affect: Mood is anxious. Behavior: Behavior is hyperactive. Thought Content: Thought content normal. Judgment: Judgment normal. Comments: Pacing around the room Assessment and Plan: 1. Anxiety - ICD9: 300.00, ICD10: F41.9 (primary diagnosis) 2. Depression, unspecified depression type - ICD9: 311, ICD10: F32.A 3. Stress reaction - ICD9: 308.9, ICD10: F43.0 4. Mood changes - ICD9: 296.90, ICD10: R45.86 5. Fatigue, unspecified type - ICD9: 780.79, ICD10: R53.83 6. Activity intolerance - ICD9: 780.99, ICD10: R68.89 7. PTSD (post-traumatic stress disorder) - ICD9: 309.81, ICD10: F43.10 8. Post viral syndrome - ICD9: 780.79, ICD10: G93.31 -The patient and I reviewed the below testing in detail. We discussed indications for testing and the benefits of results in directing the plan of care. - Will await test results and have a follow up visit to review and discuss further appropriate care paths. - Instructions to schedule and any phone numbers needed for consults placed today are provided in the AVS. - The patient was informed of how [facility] functions. We are a referral service. They will have this initial visit as well as one follow up virtual visit in which all testing, imaging, and labs will be discussed. From there on it is expected that they continue to follow up with their PCP and the specialist established through this program. We do not manage symptoms or follow patients long-term. -[facility] is not able to assist with disability requests, including work restrictions or clearances. This is because we act more as a consult/referral hub, do not do active treatment and management of long-COVID symptoms, and are not actively involved in long-term care after our 2 visits. Your primary care provider and the consulted specialists we discussed during our visit(s) are better suited for assisting with disability requests. Those providers can use our office note and testing to help support their plans of care. - COMPLETE BLOOD COUNT AND DIFFERENTIAL - COMPREHENSIVE METABOLIC PANEL - THYROID STIMULATING HORMONE - VITAMIN B12 - FOLATE, SERUM - VITAMIN D 25 HYDROXY - TRACE ELEMENTS/TPN - C-REACTIVE PROTEIN - FERRITIN - OMEGACHECK Consults initiated today: - CONSULT TO PSYCHIATRY- severe depression, panic attacks, PTSD Return for Virtual f/u with me, review results in 4-6 weeks 60 min slot. I spent a total of 60 minutes on the date of the service which included preparing to see the patient, [id number] patient care, completing clinical documentation, obtaining and/or reviewing separately obtained history, performing a medically appropriate examination, counseling and educating the patient/family/caregiver, ordering medications, tests, or procedures, and communicating results to the patient/family/caregiver. Aidee Colmenares PA-C documented in this encounter [facility] 09-29-2024 Note HNO ID: [id number] Author: AIDEE COLMENARES PA-C Service: ? Author Type: Physician Consulting Database Administrator Type: Progress Notes Filed: 09/29/2024 11:05 Note Text: [facility] Initial Evaluation Tari Ayers presents [facility] at the request of No ref. provider found for evaluation of prolonged, > 28 days, symptoms attributed to COVID-19 infection. They have requested this consultation via eConsult and will be communicated to via the EMR or [place] Post Office Correspondence. Positive COVID-19 Test: no Date of Positive Test: suspected COVID June 28 2021, also August 2021 HPI: Tari Ayers is a 58 year old female with primary symptoms as listed below: Description of their course of COVID-19 illness. 1. Symptoms began on 06/28/2021 2. Hospitalization? No 3. Was the patient on oxygen? No 4. Was patient discharged on oxygen? No 5. Was there an ICU stay? No 6. Was the patient intubated? No 7. Were there any COVID-19 medications given? No 8. Were there significant complications from the patients COVID-19 Illness? No 9. Has the patient received the COVID Vaccine? NO COVID-19 Symptom Review Most significant symptoms: Fatigue: Fatigue after activities. Has to take frequent sitting rest breaks lasting 15 minutes-2 hours. Some days worse than other days. This is worse on days that anxiety and depression is bad. Mood changes/anxiety attacks: Increased depression, anxiety since COVID. Increased feelings of sadness and crying. Little interest and pleasure in doing things. Reports panic attacks, including palpitations and SOB when this occurs daily. Has ruminating thoughts. Second guessing herself. Feels overwhelmed being out in public, lots of worry about getting sick again. On auvelity feels improved with this, however reports sharp stabbing head pain as side effect. Also has xanax and ambien. She has tried many different medications Of note does have documented PTSD in her chart going back well before COVID, in 2003. Denies HI, SI. Established with the following specialists: 2 different functional doctors. Review of Systems Psychiatric/Behavioral: Positive for dysphoric mood. The patient is nervous/anxious. No past medical history on file. Medication Review: Current Outpatient Medications on File Prior to Visit Medication Sig albuterol sulfate(PROVENTIL HFA 90 MCG/ACTUATION AEROSOL INHALER) 2 puffs qid prn, dispense with spacer and instruct No current facility-administered medications on file prior to visit. Objective Findings: Vitals: BP 144/74 (BP Site: Right Arm, BP Position: Sitting, BP Cuff Size: Regular Adult) Pulse 78 Temp 36.1 ?C (96.9 ?F) (Temporal) Ht 162.5 cm (5' 3.98) Wt 70 kg (154 lb 3.4 oz) LMP 12/04/2005 SpO2 100% BMI 26.49 kg/m? Initial Screening Questionaires review: Patient Entered Questionnaires PROMIS/NeuroQoL Score Percentiles Percentiles provide an indication of how a patient?s score ranks in relation to the [place] general population. > 31st percentile is within normal limits or better * < 31st percentile is at least ? SD worse than population, which may be clinically relevant < 16th percentile is at least 1 SD worse than population and warrants attention Physical Examination: Physical Exam Vitals and nursing note reviewed. Constitutional: General: She is not in acute distress. Appearance: Normal appearance. She is not ill-appearing, toxic-appearing or diaphoretic. HENT: Head: Normocephalic and atraumatic. Right Ear: External ear normal. Left Ear: External ear normal. Eyes: Extraocular Movements: Extraocular movements intact. Conjunctiva/sclera: Conjunctivae normal. Pupils: Pupils are equal, round, and reactive to light. Cardiovascular: Rate and Rhythm: Normal rate and regular rhythm. Pulses: Normal pulses. Heart sounds: Normal heart sounds. Pulmonary: Effort: Pulmonary effort is normal. No respiratory distress. Breath sounds: Normal breath sounds. No stridor. No decreased breath sounds, wheezing, rhonchi or rales. Chest: Chest wall: No tenderness. Musculoskeletal: Cervical back: Normal range of motion and neck supple. Right lower leg: No edema. Left lower leg: No edema. Lymphadenopathy: Cervical: No cervical adenopathy. Skin: Capillary Refill: Capillary refill takes less than 2 seconds. Coloration: Skin is not jaundiced or pale. Findings: No bruising or rash. Neurological: Mental Status: She is alert and oriented to person, place, and time. Cranial Nerves: No cranial nerve deficit. Sensory: No sensory deficit. Motor: No weakness, tremor or abnormal muscle tone. Gait: Gait and tandem walk normal. Psychiatric: Mood and Affect: Mood is anxious. Behavior: Behavior is hyperactive. Thought Content: Thought content normal. Judgment: Judgment normal. Comments: Pacing around the room Assessment and Plan: 1. Anxiety - ICD9: 300.00, ICD10: F41.9 (prima (more content not included)... [facility] 12-12-2023 Evaluation + Plan note Diagnostic Tests PendingCeliac Disease Comprehensive 12/12/23 [facility] 11-04-2023 Evaluation note Encounter Date Diagnosis Assessment Notes Oct, Anxiety (ICD-10 - F41.9) Quite lengthy discussion with patient today regarding all of her concerns. I am happy that she feels that the Lexapro has been beneficial. I think we stay the course and recheck again in 1 month. She is agreeable to this. She can continue to use the Ativan on an as-needed basis. Oct, Vitamin D deficiency (ICD-10 - E55.9) I think it would be quite reasonable to pursue the vitamin D. She voices agreement and understanding. Oct, Chronic fatigue (ICD-10 - R53.82) I would like her to discuss the use of the hormone therapy with [facility] and they can help guide us as to exactly what she may need. As far as at actually needing the medication this is a difficult question, as no lab testing is really going to definitively tell us that this has been beneficial. She would really need to hold the medication to see if she would experience further symptoms. [facility] 01-11-2024 Evaluation note* Encounter Date Diagnosis Assessment Notes Treatment Notes Treatment Clinical Notes Sep, Anxiety (ICD-10 - F41.9) Very lengthy 45+ minute discussion with patient today in regard to her current and ongoing concerns. We talked at great length about the medications natural treatments that she has tried over the last year or so. I really commended her for trying just about every natural path that she could find. She just does not feel that any of that is helpful and wonders if going back on an SSRI is reasonable. I think that since she has not found really any benefit with these other options, I think trying the SSRI again would certainly not be unreasonable. The other local physician did give her some alprazolam that she can take on an as-needed basis. I certainly think that this is not unreasonable, but I really would much rather see her be on something daily -the benzodiazepines, as she is aware, do present dependency potential. She voices agreement and understanding. We will recheck again in 1 month. Call with any concerns. [facility] 02-22-2023 Evaluation note* Encounter Date Diagnosis Assessment Notes Treatment Notes Treatment Clinical Notes Oct, Anxiety (ICD-10 - F41.9) Lengthy 30+ minute discussion with patient today. After lengthy discussion, pt to trial Lexapro 15mg in the AM - hopefully this will help with insomnia issues.... Printout of all of her blood work has been given to her to present to the physician that she is going to be seeing in 2 weeks. I am very interested to see what her thoughts are. Patient voices agreement and understanding. [facility] 02-01-2023 Evaluation note* Encounter Date Diagnosis Assessment Notes Treatment Notes Treatment Clinical Notes Oct, Chronic fatigue (ICD-10 - R53.82) Lengthy 30+ minute discussion with patient today that we will continue to maintain the current dose of all the medication. E Rx sent to local compounding pharmacy for the refills that she is needing. Oct, Anxiety (ICD-10 - F41.9) We will maintain current dose of the Lexapro at 15 mg. No other change today. Oct, Brisk deep tendon reflexes (ICD-10 - R29.2) Discussed with patient that I do not have a great answer for this, but we will monitor closely. [facility] 12-02-2022 Evaluation note* Encounter Date Diagnosis Assessment Notes Treatment Notes Treatment Clinical Notes Aug, Anxiety (ICD-10 - F41.9) Lengthy 30+ minute discussion with patient today. Pt to trial 2 5mg tabs (for a total of 10mg) - call when needs refill at the higher dose. We also discussed that I will contact the local compounding pharmacy to discuss options of the naltrexone but also vitamin D weekly. She voices agreement and understanding. Call with any concerns regarding the higher dose of the Lexapro. I really feel she should tolerate this well based on results of the 5 mg. [facility] 11-01-2022 Evaluation note* Encounter Date Diagnosis Assessment Notes Treatment Notes Treatment Clinical Notes Jul, Chronic fatigue (ICD-10 - R53.82) Lengthy 30+ minute discussion with patient and today. Certainly I think we should move forward with pursuing more specific testing. We will call her with the results of this blood work. She may very well need to end up seeing a specialist should any of this come back abnormal. We also talked [facility] They do have an extensive list of lab work that they do like to pursue. She voices agreement and understanding. Jul, Arthralgia, unspecified joint (ICD-10 - M25.50) Jul, Endocrine disorder, unspecified (ICD-10 - E34.9) Jul, Other specified disorders of adrenal gland (ICD-10 - E27.8) Jul, Other Patient and hus band specifically wonder about anxiety today. Certainly I think this could be very well a large component, but I think it would be shortsighted to simply blame anxiety before checking these other concerns. She voices agreement and understanding. [facility] 01-06-2022 Evaluation note* Encounter Date Diagnosis Assessment Notes Treatment Notes Treatment Clinical Notes Sep, Chronic fatigue (ICD-10 - R53.82) Lengthy discussion with patient and today that certainly it sounds to be post-COVID type symptoms. She was never formally diagnosed, but she had strong exposure to known positive cases and the symptoms are fairly classic for post-COVID. We discussed at length that this just may simply take time. She voices agreement and understanding. We will go ahead and pursue a general work-up looking at basic blood work, to make sure there is nothing further underlying these concerns. We will call her with the results. Sep, Vitamin D deficiency (ICD-10 - E55.9) [facility] Other 10-01-2021 History general Narrative - Reported* Type Description Date Medical History corrective lenses - glasses Medical History COVID - 06/2021 Hospitalization History Childbirth [facility] Other Evaluation noteNo assessment information available [facility] Work Phone: evaluation note* Diagnosis Onset Date Resolution Status Anxiety acute Anxiety acute Anxiety acute Sleep difficulties noneactiv e Chest pain noneactive [facility] Work Phone: evaluation note* Diagnosis Anxiety- Primary Anxiety state, unspecified Depression, unspecified depression type Stress reaction Unspecified acute reaction to stress Mood changes Unspecified episodic mood disorder Fatigue, unspecified type Activity intolerance Other general symptoms PTSD (post-traumatic stress disorder) Posttraumatic stress disorder Post viral syndrome Other malaise and fatigue [facility] in this [facility] Diagnosis PTSD (post-traumatic stress disorder)- Primary Posttraumatic stress disorder Depression, unspecified depression type Anxiety Anxiety state, unspecified [facility] Narrative - Reported* Type Description Date Medical History corrective lenses - glasses Hospitalization History Childbirth [facility] Other Hospital course Narrative No data available for this [facility] No data available for this section [facility] data available for this section [facility] Chief Complaint and Reason for Visit Chief Complaint R53.82;M25.50;E34.9; E27.8 Chief Complaint Gene Site Results Amb Documentation xanax increase/discuss other meds Amb Documentation 1 month R07.9 Reason for Visit Anxiety Anxiety Anxiety Sleep difficulties Chest pain Advance Directives No Advanced Directives Records Found Advance Directive Response Recorded Date/ Time Advance Directives No May 3:17pm Family History No Family History Records Found Relationship Condition Age at Onset Recorded Date/T ole father Hypertension Unknown grandparent Malignant neoplasm Unknown Diabetes mellitus Unknown Hypertension Unknown Unknown grandparent Heart disease Unknown grandparent Hypertension Unknown mother Hypertension Unknown Summary Purpose Reason for Referral Specialty Diagnoses / Procedures Referred By Contac t Referred To Contact Diagnoses Anxiety Depression, unspecified depression type Stress reaction Mood changes Fatigue, unspecified type Activity intolerance PTSD (post-traumatic stress disorder) Post viral syndrome Procedures CONSULT TO PSYCHIATRY OFFICE/OUTPATIENT [facility] 60 MINUTES Aidee Colmenares PA-C [address] [place] [address] Referral ID Status Reason Start Date Expiration Date Visits Requested Visits Authorized [id number] Pending Review PCP Requested Referral 09/29/2024 09/29/2025 1 1 Additional Source Comments REASON FOR VISIT (unrecogniz ed section and content) Reason Comments Intake [facility] pre-visit phone call Reason Comments [facility] Reason Comments Depression Anxiety Specialty Diagnoses / Procedures Referred By Contarnav t Referred To Contact Diagnoses Anxiety Depression, unspecified depression type Stress reaction Mood changes Fatigue, unspecified type Activity intolerance PTSD (post-traumatic stress disorder) Post viral syndrome Procedures CONSULT TO PSYCHIATRY OFFICE/OUTPATIENT [facility] 60 MINUTES Aidee Colmenares PA-C [address] [place] [id number] Referral ID Status Reason Start Date Expiration Date Visits Requested Visits Authorized [id number] Pending Review PCP Requested Referral 09/29/2024 09/29/2025 1 1 Reason Onset Date Comments Call Back 48 Hours 10/14/2024 Reason Onset Date Comments Other 04/01/2025 [facility] Up Assessment Care Teams (unrecognized sec tion and content) Team Status: Inactive Member Role Status Dates Pamela Valentine DO Primary Care Provider, Attending Provider Active Team Status: Active Member Role Status Dates Pamela Valentine DO Primary Care Provider Active Team Status: Inactive Member Role Status Dates Pamela Valentine DO Primary Care Provid er, Attending Provider Active Start: April 01, 2024 End: April 01, 2024 Team Status: Active Member Role Status Dates Pamela Valentine DO Primary Care Provider Active Start: May 11, 2024 Misael Shelton LPN Attending Provider Active St art: May 11, 2024 Team Status: Inactive Member Role Status Dates Pamela Valentine DO Primary Care Provid er, Attending Provider Active Start: May 22, 2024 End: May 22, 2024 Team Status: Active Member Role Status Dates Pamela Valentine DO Primary Care Provider Active Start: May 26, 2024 Misael Shelton LPN Attending Provider Active St art: May 26, 2024 Team Status: Inactive Member Role Status Dates Pamela Valentine DO Primary Care Provid er, Attending Provider Active Start: June 23, 2024 End: June 23, 2024 Goals (unrecognized section and content) Goals may be documented in a n alternate section INFORMATION SOURCE (unrecogn ized section and content) DATE CREATED AUTHOR 07/12/2024 [facility] DATE CREATED AUTHOR AUTHOR'S ORGANIZ ATION 10/14/2024 [facility] DATE CREATED AUTHOR AUTHOR'S ORGANIZ ATION 10/21/2024 [facility] DATE CREATED AUTHOR AUTHOR'S ORGANIZ ATION 10/22/2024 [facility] DATE CREATED AUTHOR AUTHOR'S ORGANIZ ATION 11/13/2024 [facility] DATE CREATED AUTHOR AUTHOR'S ORGANIZ ATION 11/19/2024 [facility] DATE CREATED AUTHOR AUTHOR'S ORGANIZ ATION 04/05/2025 [facility] DATE CREATED AUTHOR AUTHOR'S ORGANIZ ATION 04/09/2025 [facility] DATE CREATED AUTHOR AUTHOR'S ORGANIZ ATION 07/01/2025 [facility] Source Comments (unrecognize d section and content) In the event this informatio n is protected by the Federal Confidentiality of Alcohol and Drug Abuse Patient Records regulations: The Federal rules restrict any use of the information to criminally investigate or prosecute any alcohol or drug abuse patient.[facility] the event this information is protected by the Federal Confidentiality of Alcohol and Drug Abuse Patient Records regulations: The Federal rules restrict any use of the information to criminally investigate or prosecute any alcohol or drug abuse patient.[facility] the event this information is protected by the Federal Confidentiality of Alcohol and Drug Abuse Patient Records regulations: The Federal rules restrict any use of the information to criminally investigate or prosecute any alcohol or drug abuse patient.[facility] the event this information is protected by the Federal Confidentiality of Alcohol and Drug Abuse Patient Records regulations: The Federal rules restrict any use of the information to criminally investigate or prosecute any alcohol or drug abuse patient.[facility] the event this information is protected by the Federal Confidentiality of Alcohol and Drug Abuse Patient Records regulations: The Federal rules restrict any use of the information to criminally investigate or prosecute any alcohol or drug abuse patient.[facility] Center[facility] the event this information is protected by the Federal Confidentiality of Alcohol and Drug Abuse Patient Records regulations: The Federal rules restrict any use of the information to criminally investigate or prosecute any alcohol or drug abuse patient.[facility] FOR RECORDS PERTAINING TO PATIENTS WHO ARE OR HAVE BEEN ENROLLED IN A CHEMICAL DEPENDENCY/SUBSTANCEABUSE PROGRAM, SOME INFORMATION MAY BE OMITTED. This clinical summary was aggregated from multiple sources. Caution should be exercised in using it in the provision of clinical care. This summary normalizes information from multiple sources, and as a consequence, information in this document may materially change the coding, format and clinical context of patient data. In addition, data may be omitted in some cases. CLINICAL DECISIONS SHOULD BE BASED ON THE PRIMARY CLINICAL RECORDS. [facility]. provides no warranty or guarantee of the accuracy or completeness of information in this document.
[2025-08-24 18:33] LABS: Hematocrit 41.4 % (37-47); Hemoglobin 13.2 g/dL (12.0-15.0); Immature Granulocytes Count 0.010 X10^3/uL (0.0-0.0); Mean Corp Hgb Conc 31.9 g/dL (32-36); Mean Corpuscular Volume 88.5 fL (81-99); Mean Platelet Vol. 10.9 fl (6.2-12.0); NRBC Flagged by Analyzer 0 % (0-5); Platelet Count 322 K/mm3 (150-450); RBC Distribution Width CV 12.2 % (11.6-14.6); RBC Distribution Width SD 39.7 fl (35.1-43.9); Red Blood Count 4.68 M/mm3 (4.2-5.4); White Blood Count 7.0 K/mm3 (4.4-11.0)
[2025-08-24 19:00] LABS: Fibrinogen 385 mg/dl (203-444)
[2025-08-24 19:09] LABS: AST(SGOT) 22 U/L (<=31); Alanine Aminotransfer ALT/SGPT 16 U/L (<=34); Albumin, Serum 4.3 g/dL (3.4-4.8); Alkaline Phosphatase 71 U/L (35-104); Anion Gap 12 (5-15); BUN 13 mg/dL (4-19); BUN/Creat Ratio 21.6 RATIO (10-20); Calcium,Total 9.8 mg/dL (7.6-11.0); Carbon Dioxide 24.8 mmol/L (21.0-32.0); Chloride 103 mmol/L (98-108); Globulin 2.9 g/dL (2.2-4.2); Glucose 85 mg/dL (70-99); Potassium 4.0 mmol/L (3.3-5.1)
[2025-08-24 19:25] LABS: CRP 4.44 mg/L (0.0-3.0); Iron 67 ug/dL (50-170)
[2025-08-24 20:08] LABS: Ferritin 70 ng/mL (22-378); Vitamin D,25 Hydroxy 52.0 ng/mL (30-100)
[2025-08-26 08:09] LABS: CRP, High Sensitivity 3.75 mg/L (0.00-3.00); HOMOCYSTEINE 9.4 umol/L (0.0-14.5); PROGESTERONE 2.3 ng/mL (.)
[2025-08-28 15:08] LABS: Vitamin A, Retinol 48.7 ug/dL (22.0-69.5)
[2025-08-29 14:08] LABS: VITAMIN B6 7.7 ug/L (3.4-65.2); Vitamin B1, Thiamine 336.3 nmol/L (66.5-200.0)
== END | disposition home or self-care (01) ==
PROVIDERS: PCP Nurse Practitioner Family; Visit Provider Nurse Practitioner Family
DX: R53.1 Weakness (principal); R63.4 Abnormal weight loss; R53.82 Chronic fatigue, unspecified; G47.00 Insomnia, unspecified; R63.8 Other symptoms and signs concerning food and fluid intake; R50.9 Fever, unspecified; R43.9 Unspecified disturbances of smell and taste; R06.02 Shortness of breath; R07.9 Chest pain, unspecified; R10.84 Generalized abdominal pain; R11.0 Nausea; M62.838 Other muscle spasm; G25.0 Essential tremor; G31.84 Mild cognitive impairment of uncertain or unknown etiology; F32.A Depression, unspecified; F41.9 Anxiety disorder, unspecified; N95.8 Other specified menopausal and perimenopausal disorders
CPT/HCPCS: 80053; 82306; 82627; 82670; 82728; 83036; 83090; 83525; 83540; 83695; 84144; 84207; 84403; 84425; 84590; 85025; 85384; 85652; 86140; 86141; 82626